=== PATIENT | female | born 1945 | race Caucasian/White ===

== ENCOUNTER → 2016-11-14 | Outpatient (CLI) | payer MEDICARE, OTHER ==
--- NOTE | 2016-11-14 16:30 | RADIOLOGY REPORT (SQ) ---
EXAM DESCRIPTION: CT CHEST WITHOUT COMPLETED DATE/TIME: 11/14/2016 3:00 pm REASON FOR STUDY: COUGH/COPD R05 COUGH J44.9 CHRONIC OBSTRUCTIVE PULMONARY DISEASE, UNSPECIFIED COMPARISON: None. TECHNIQUE: CT scan performed of the chest without intravenous contrast. Images reviewed with lung, soft tissue and bone windows. Reconstructed coronal and sagittal MPR images reviewed. All images st ored on PACS. All CT scanners at this facility use dose modulation, iterative reconstruction, and/or weight based d osing when appropriate to reduce radiation dose to as low as reasonably achievable (ALARA). [facility]: Dose Right [facility]: CareDose [facility]: Dose Right [facility]: Teradose 4D [facility]: VasoNova RADIATION DOSE: Up-to-date CT equipment and radiation dose reduction techniques were employed. CTDIv ol: 9.9 mGy. DLP: 346 mGy-cm. mGy. LIMITATIONS: No technical limitations. FINDINGS: LUNGS AND PLEURA: Fairly diffuse subpleural scarring, reticular opacities with regions of fibrosis. This looks slightly more pronounced in the upper lobes, with there is additional bullous e mphysema. No consolidating pneumonia. No nodules or masses. No pleural calcification or fluid. HILAR AND MEDIASTINAL STRUCTURES: Small nodes in the mediastinum. These measure up to almost 1 cm in short axis. Hiatal hernia, organo-axial volvulus. Stomach flipped into the lower mediastinum. No esophageal dilatation. HEART AND VASCULAR STRUCTURES: No aneurysm. No pericardial effusion. UPPER ABDOMEN: No significant findings. Limited exam. THYROID AND OTHER SOFT TISSUES: No masses. No adenopathy. BONES: Osteopenic. Small wedge compression deformities at thoracolumbar junction are likely chronic. At least 1 additional mid thoracic upper endplate depression. No suspicious bone lesions are ident ified. HARDWARE: None in the chest. OTHER: No other significant findings. IMPRESSION: 1. Emphysema and fibrosis as above. No acute infiltrate detected. 2. Sizable hiatal hernia, organo-axial volvulus. 3. Osteopenia. Several compression fractures are likely chronic. TECHNICAL DOCUMENTATION: JOB ID: [id number] Quality ID # [id number]: Final reports with documentation of one or more dose reduction techniques (e.g., Au tomated exposure control, adjustment of the mA and/or kV according to patient size, use of iterative reconstruction technique) 2010 [employer]- All Rights Reserved
== END ==
LOC: RAD 14:37
PROVIDERS: ATTEND Family Medicine
DX: J44.9 Chronic obstructive pulmonary disease, unspecified (principal); R05 Cough
CPT/HCPCS: 71250

== ENCOUNTER → 2017-03-21 | Outpatient (CLI) | payer MEDICARE, OTHER ==
--- NOTE | 2017-03-21 10:12 | ST Modified Barium Swallow ---
Recommendation - Recommendations Recommendations: Recommend consult with GI due to nature of symptoms. No pharyngeal swallowing deficits seen. Medical Diagnoses - Medical Diagnoses Medical Diagnosis Description & ICD-10 Code(s): dysphagia R13.10 Other Medical Diagnoses/Co-Morbidities: patient reported acute bronchitis, reflux, chronic back pain, anxiety, depression. - ICD-10 Tx Diagnosis Coding (1) Dysphagia ICD-10 Code(s): R13.10 - DYSPHAGIA, UNSPECIFIED ST Modified Barium Swallow - General Date: 03/21/17 Referring Physician: Dr. Francis Morgan Reason for Referral: globus sensation, discomfort during swallowing. - History History obtained from: Patient -: Medical - Patient reports having symptoms for "months" of pain or discomfort during swallowing. Indicates that pain is felt below the level of the UES. She states that she is also having reflux symptoms, that she is taking medication for this but does not feel it is helping. No recent pneumonia diagnosed, and no significant coughing during meals. Does report needing to have liquid during meals due to dry mouth. Patient did also have 4 teeth pulled recently, reports some mild mouth pain, but this is not impacting her swallowing at this time. Medications: Incomplete list reported by patient, states that she is taking a reflux medication, unable to name specific medication. Allergies: Patient reported allergy to anoxicillin and myoxin - Functional Status Prior Functional Status: INDEPENDENT: feeding - independent Current Functional Limitations: feeding - Subjective Patient/caregiver goal(s): safe swallow Cognitive-Linguistic Function: WNL Speech Intelligibility: WNL Current Nutritional Means: PO Current PO diet: Regular Current symptoms: c/o Globus sensation Pain: 1/5 - mouth pain from recent dental procedure - Objective Assessment: Upright, Left Lateral - Food Trials Used Food trials used: Thin liquids, Pureed, Regular The patient: Was Able to Self Feed - Oral-Motor Skills Dentition: Full Laryngeal Function: Volitional Cough - WNL, Volitional Swallow - WNL - Assessment Oral prep: Normal Labial closure: Adequate Leakage: None Mastication: Adequate Lingual Movement: Normal Oral stage: Normal for this Procedure - Pharyngeal Stage Initiation of Pharyngeal Stage Reflex: Normal Decreased laryngeal elevation: No Reduced Velopharyngeal Closure: no Reduced pressure generation: No reduced tongue-based retraction: No Pre-swallow pooling in valleculae: None Pre-Swallow pooling in pyriforms: None Reduced Thyro-Hyoid approximation: No Reduced epiglottic excursion: No Reduced pharyngeal peristalsis/contraction: No Post-swallow residulas vallecular: None Post-Swallow residuals in pyriforms: None Post-Swallow Residuals: no residuals - Fall Risk Assessment Medications/Conditions that increase fall risks include: Antidepressants, sedatives, anti-arrhythmic, diuretic, benzodiazipenes, neuroleptics. BP regulation problems, cardiac problems, balance or gait deficits, neurological problems. Is patient considered at risk for falls: yes Fall Risk Actions Taken: No action needed - Behavioral Observations During evaluation process patient: was pleasant, was cooperative, able to answer questions, provided medical history Mental Status: Alert & Oriented X3 - Treatment / Educational Needs: Treatment/Education Needs: Treatment consisted of patient education on the role of the Speech Pathologist. Patient's plan of care and golas were communicated as well as scheduling and attendance policies. Recommendations for initial home program were shared. Patient demonstrated understanding and verbalized agreement. - Impression/Summary Laryngeal Penetration: No Tracheal Aspiration: no Patient presents with: Normal swallow at eval Risk of Aspiration: Minimal Evaluation and Findings: Patient presents with normal swallow this day. Possible GI concerns due to patient complaints of heart burn and discomfort at a lower level when swallowing solids. - Recommendations Solid diet recommendations: Regular Liquid Diet Modification: Thin Pt/Family education and followup with MD: Yes Dysphagia therapy with FIBER MACHINE TENDER: no - Time Total Time: 25 - Plan of Care Patient to follow-up with referring physician: No Strategies to optimize patient understanding include:: ongoing assessment of educational needs, implementation of educational strategies, and re-education. - - -: Thank you for the opportunity to work with this patient and his/her family. Should you have any questions about this patient's plan or progress, I can be reached at [phone]. Charge G Code? - - -: Yes ST F.L. Impairment Category - Rationale Based On Rationale Based On: Func. Asses. Tool Results - Swallowing Current G8996: CH 0% Impaired Goal G8997: CH 0% Impaired Discharge G8998: CH 0% Impaired
--- NOTE | 2017-03-21 17:12 | RADIOLOGY REPORT (SQ) ---
EXAM DESCRIPTION: KAMILLA SWALLOW COMPLETED DATE/TIME: 03/21/2017 8:46 am REASON FOR STUDY: DYSPHAGIA (R13.10) R13.10 DYSPHAGIA, UNSPECIFIED COMPARISON: None. TECHNIQUE: Videofluoroscopic swallowing examination was performed in conjunction with speech patholo gy. Videofluoroscopic imaging was obtained and reviewed and these are the findings: RADIATION DOSE: One minute, seven seconds of fluoroscopy was used 1 images saved to PACS. LIMITATIONS: None FINDINGS: The patient was brought into the fluoro room and placed upright on a modified barium swall ow chair. The patient was then given multiple consistencies mixed with barium to swallow under live fluoroscopic video guidance. According to the Speech Pathologist there was no penetration or aspirat ion. IMPRESSION: NO EVIDENCE OF PENETRATION OR ASPIRATION.PLEASE SEE SPEECH PATHOLOGIST REPORT FOR OTHER FINDINGS AND RECOMMENDATIONS. COMMENT: Quality ID [id number]: Final reports for procedures using fluoroscopy that document radiation exp osure indices, or exposure time and number of fluorographic images (if radiation exposure indices are not available) TECHNICAL DOCUMENTATION: JOB ID: [id number] [employer]- All Rights Reserved
[2017-03-22 08:22] LABS: IGG SUBCLASS 4 3 mg/dL (2-96)
[2017-03-22 13:38] LABS: JO-1 ANTIBODY (ANACOMP) <0.2 AI (0.0-0.9)
[2017-03-25 16:39] LABS: CYTOPLASMIC (C-ANCA) <1:20 titer (Neg:<1:20)
== END ==
LOC: RAD 08:12
PROVIDERS: ATTEND Internal Medicine Pulmonary Disease
DX: J84.10 Pulmonary fibrosis, unspecified (principal); R13.10 Dysphagia, unspecified
CPT/HCPCS: 36415; 86021; 86430; 86225; 86235 ×8; 74230; 92611; G8996; G8997; G8998

== ENCOUNTER → 2017-05-15 | Outpatient (CLI) | payer MEDICARE, OTHER ==
[2017-05-15 14:51] LABS: POTASSIUM 4.5 mmol/L (3.6-5.0)
[2017-05-15 15:24] LABS: FERRITIN 19.3 ng/mL (11.1-264.0)
[2017-05-16 16:44] LABS: FOL RBC HEMATOCRIT 41.6 % (34.0-46.6); FOLATE HEMOLYSATE 297.8 ng/mL (Not Estab.)
[2017-05-16 19:17] LABS: FOLATE RBC 3 716 ng/mL (>498)
== END ==
LOC: OD 13:35
PROVIDERS: ATTEND Internal Medicine Pulmonary Disease
DX: G47.61 Periodic limb movement disorder (principal); D64.9 Anemia, unspecified
CPT/HCPCS: 36415; 82306; 82607; 82728; 82747; 83735; 84132

== ENCOUNTER 2017-08-12 16:28 | Emergency (ER) | payer MEDICARE, OTHER ==
[2017-08-12] MEDS ORDERED: HYDROMORPHONE HCL INJ/PF 2 MG/ML AMPULE IV ONE ×3 (19:05→22:26)
[2017-08-12] MEDS ORDERED: ONDANSETRON HCL INJ/PF 4 MG/2 ML SDV IV ONE ×2 (19:05→23:02)
--- NOTE | 2017-08-12 19:10 | ER Document Report ---
ED Neck/Back Problem - General Chief Complaint: Back Pain Stated Complaint: BACK PAIN Time Seen by Provider: 08/12/17 18:51 Mode of Arrival: Medic Information source: Patient, Relative TRAVEL OUTSIDE OF THE [place] IN LAST 30 DAYS: No - HPI Patient complains to provider of: Pain, Lower back Notes: The patient is here with complaints of low back pain. The patient has a history of chronic back pain and has been taking [place] as prescribed by her doctor up until about a week ago. She had a spinal injection performed approximately 5 days ago and has had increasingly worsening pain over this timeframe. Today the pain was so bad that she is not able to stand because of the pain. She has nausea, but denies any vomiting or diarrhea. She denies any bowel or bladder dysfunction. She is not on blood thinners. She denies any numbness, tingling, weakness to the legs. No chest pain or shortness of breath. No rash. No fever. She denies any other complaints at this time. The pain is worse with any sort of movement, nothing in particular makes it better although certain positions make it somewhat tolerable. - Related Data Allergies/Adverse Reactions: clarithromycin [From Biaxin] Allergy (Verified 08/12/17 16:30) Penicillins Allergy (Verified 08/12/17 16:30) Past Medical History - Social History Smoking Status: Unknown if Ever Smoked Family History: Reviewed & Not Pertinent - Past Medical History Cardiac Medical History: Reports: Hx Hypertension GI Medical History: Reports: Hx Gastroesophageal Reflux Disease, Hx Irritable Bowel Past Surgical History: Reports: Hx Orthopedic Surgery - L knee - Immunizations Hx Diphtheria, Pertussis, Tetanus Vaccination: Yes Review of Systems - Review of Systems -: Yes All other systems reviewed and negative Physical Exam - Vital signs Vitals: Temp Pulse Resp BP Pulse Ox 98.2 F 77 16 140/81 H 97 08/12/17 16:34 08/12/17 16:34 08/12/17 16:34 08/12/17 16:34 08/12/17 16:34 - Notes Notes: GENERAL: alert, cooperative, nontoxic, no distress. Patient definitely appears uncomfortable. HEAD: normocephalic, atraumatic EYES: conjunctiva pink without discharge, no external redness or swelling. EARS: no external swelling, no external redness NOSE: atraumatic, no external swelling MOUTH/THROAT: mucous membranes moist and pink, posterior pharynx without erythema, swelling, exudate. No trismus or drooling. NECK: soft, supple, full range of motion, no meningismus. CHEST: no distress, lungs clear and equal throughout. No wheezing, rales, rhonchi. CARDIAC: regular rate and rhythm, no murmur, normal capillary refill, normal pulses. No peripheral edema noted. ABDOMEN: soft, nontender, no pusatile mass. BACK: No CVA tenderness. Tenderness to the right SI joint. No redness over the skin. Limited range of motion secondary to pain. EXTREMITIES: full range of motion of all extremities. No redness, no swelling. NEURO: alert and oriented A&O x 3, no focal deficits, full range of motion of all extremities. 5 out of 5 flexion and extension of the lower extremities bilaterally. Achilles deep tendon reflexes are +2 bilaterally. Difficulty obtaining patellar deep tendon reflexes. Patient has had bilateral knee replacements. Normal sensation with no saddle anesthesia. Patient can dorsiflex the great toes bilaterally. PYSCH: appropriate mood, affect. Patient is cooperative. SKIN: pink, warm, dry, no rash. Course - Re-evaluation Re-evalutation: 08/12/17 23:56 The patient is nontoxic appearing with stable vitals. The patient has a history of chronic back pain. She received particular injections 5 days ago. She has no pain medication at home. Over the last 2 days she has had significantly worsening pain to the point where she was unable to ambulate due to extreme pain. No bowel or bladder dysfunction. She is on no blood thinners. She has not been running fevers. Her injection site looks great with no signs of infection. She has a nonfocal neuro exam with normal sensation and no saddle anesthesia. No sign of cauda equina, epidural abscess/ bleed, discitis, osteomyelitis. She has a normal white blood cell count. Sed rate and CRP are minimally elevated. CT of the lumbar spine with IV contrast shows no abscess or acute findings with degenerative changes and disc bulge. The patient was given pain medication in the emergency department which included Dilaudid and Toradol. We now have her pain under control. She was able to ambulate to the bathroom without significant difficulty on her own. At this point we discussed admission versus discharge home. Since the patient has no obvious signs of acute infections or deficits and is feeling better and able to ambulate, she feels comfortable being discharged home at this time. I will discharge the patient home with Jeffrey and [place]. She is instructed to follow-up with her pain doctor tomorrow for recheck. She is instructed to follow-up sooner or return to the emergency department if she increase has increasing pain, high fever, bowel or bladder dysfunction, weakness, or has any further concerns. The patient is noted to have elevated blood pressure during today's emergency department visit. The patient was informed of this finding. The patient was instructed that this may be related to pre-hypertension and requires further evaluation with a primary care provider. The patient has no hypertensive symptoms at this time. The patient's emergency department workup and current diagnosis were explained to the patient and or family. Follow-up instructions were provided. Medications if prescribed were discussed. Instructions for when to return to the emergency department including specific worrisome symptoms were discussed with the patient and/or family. - Vital Signs Vital signs: Temp Pulse Resp BP Pulse Ox 98.2 F 77 16 140/81 H 97 08/12/17 16:34 08/12/17 16:34 08/12/17 16:34 08/12/17 16:34 08/12/17 16:34 - Laboratory Result Diagrams: 08/12/17 19:27 08/12/17 19:27 Laboratory results interpreted by me: 08/12/17 08/12/17 08/12/17 19:27 19:27 19:55 RDW 14.2 H ESR 36 H C-Reactive Protein 20.2 H - Diagnostic Test Radiology reviewed: Image reviewed, Reports reviewed - CT of the lumbar spine with IV contrast shows no paraspinal abscess, anterior listhesis with disc bulge and old endplate deformity. No acute findings. Discharge - Discharge Clinical Impression: Acute exacerbation of chronic low back pain Condition: Stable Disposition: HOME, SELF-CARE Instructions: Low Back Pain ([facility]), Oral Narcotic Medication ([facility]) Additional Instructions: Take medications as prescribed. Usual walker while at home. Be sure to get up and move slowly. Follow-up with your back doctor at the next available appointment. Return to the emergency department for worsening pain, high fever , bowel or bladder dysfunction, numbness, tingling, weakness, or any further concerns. Your blood pressure was elevated during today's visit. Have this rechecked with your doctor. The medication you were prescribed today may cause drowsiness. Do not drive or operate heavy machinery while taking this medication. Prescriptions: Ondansetron HCl [Zofran 4 mg Tablet] 1 - 2 tab PO Q4H PRN #10 tablet PRN Reason: Oxycodone HCl/Acetaminophen [Percocet 5-325 mg Tablet] 1 - 2 tab PO Q4H PRN #15 tablet PRN Reason: Forms: Elevated Blood Pressure, Smoking Cessation Education Referrals: [facility] [Provider Group] - Follow up as needed
[2017-08-12 19:35] LABS: ABSOLUTE BASOPHILS # (AUTO) 0.1 10^3/uL (0.0-0.2); ABSOLUTE EOSINOPHILS # (AUTO) 0.1 10^3/uL (0.0-0.6); ABSOLUTE LYMPHOCYTES (AUTO) 1.8 10^3/uL (0.5-4.7); ABSOLUTE MONOCYTES (AUTO) 0.6 10^3/uL (0.1-1.4); ABSOLUTE NEUT (AUTO) 5.5 10^3/uL (1.7-8.2); BASOPHILS % (AUTO) 0.6 % (0-2); EOSINOPHILS % (AUTO) 0.9 % (0-6); HEMATOCRIT 42.1 % (36.0-47.0); HEMOGLOBIN 13.9 g/dL (12.0-15.5); LYMPHOCYTES % (AUTO) 22.1 % (13-45); MEAN CORPUSCULAR HEMOGLOBIN 29.8 pg (27.0-33.4); MEAN CORPUSCULAR VOLUME 90 fl (80-97); MONOCYTES % (AUTO) 7.8 % (3-13); PLATELET COUNT 229 10^3/uL (150-450); RED BLOOD COUNT 4.66 10^6/uL (3.72-5.28); RED CELL DISTRIBUTION WIDTH 14.2 % (11.5-14.0); SEGMENTED NEUTROPHILS % (AUTO) 68.6 % (42-78); TOTAL CELLS COUNTED % (AUTO) 100 %
[2017-08-12 20:31] LABS: ALANINE AMINOTRANSFERASE 37 U/L (9-52); ALBUMIN 4.6 g/dL (3.5-5.0); ALKALINE PHOSPHATASE 95 U/L (38-126); ANION GAP 12 (5-19); ASPARTATE AMINO TRANSFERASE 23 U/L (14-36); BILIRUBIN,DIRECT 0.4 mg/dL (0.0-0.4); BILIRUBIN,TOTAL 0.7 mg/dL (0.2-1.3); BLOOD UREA NITROGEN 10 mg/dL (7-20); C-REACTIVE PROTEIN 20.2 mg/L (<10.0); CARBON DIOXIDE 27 mmol/L (22-30); CHLORIDE 100 mmol/L (98-107); GLUCOSE 89 mg/dL (75-110); POTASSIUM 3.9 mmol/L (3.6-5.0); SODIUM 139.1 mmol/L (137-145); TOTAL PROTEIN 7.5 g/dL (6.3-8.2)
[2017-08-12] MEDS ORDERED: KETOROLAC TROMETHAMINE INJ/PF 30 MG/1 ML SDV IV ONE (21:33)
--- NOTE | 2017-08-12 22:44 | RADIOLOGY REPORT (SQ) ---
EXAM DESCRIPTION: CT LUMBAR SPINE WITH COMPLETED DATE/TIME: 08/12/2017 10:11 pm REASON FOR STUDY: LOW BACK PAIN, RECENT INJECTION COMPARISON: None. TECHNIQUE: Axial images acquired through the lumbar spine without intravenous contrast. Images revi ewed with lung, soft tissue and bone windows. Reconstructed coronal and sagittal MPR images reviewed . All images stored on PACS. All CT scanners at this facility use dose modulation, iterative reconstruction, and/or weight based d osing when appropriate to reduce radiation dose to as low as reasonably achievable (ALARA). [facility]: Dose Right [facility]: CareDose [facility]: Dose Right [facility]: Teradose 4D [facility]: Yododo RADIATION DOSE: mGy. LIMITATIONS: None. FINDINGS: SEGMENTATION: Normal. No transitional anatomy. ALIGNMENT: Grade 1 anterolisthesis of L4 on L5. VERTEBRAL BODIES: Superior endplate compression changes at L1 that do not appear acute. Mild superio r endplate compression changes at T12 as well. DISCS: There is marked narrowing of the disc space at L5-S1. There is mild bulging of the L4-5 disc that is partially unroofed by the anterolisthesis. PEDICLES, TRANSVERSE PROCESSES: No fractures. No dislocation. No acute findings. FACETS, POSTERIOR ELEMENTS: No fractures. No dislocation. No spinal stenosis. HARDWARE: None in the spine. VISUALIZED RIBS: No fractures. SOFT TISSUES: There is no evidence of paraspinous abscess. OTHER: No other significant finding. IMPRESSION: Anterolisthesis of L4 on L5 with mild disc bulge at that level. Old endplate compressio n changes seen at T12 and L1. TECHNICAL DOCUMENTATION: JOB ID: [id number] Quality ID # [id number]: Final reports with documentation of one or more dose reduction techniques (e.g., Au tomated exposure control, adjustment of the mA and/or kV according to patient size, use of iterative reconstruction technique) 2010 [employer]- All Rights Reserved Reading location - IP/workstation name: [email or web address]
[2017-08-13 00:41] VITALS: BP 141/95
== END 2017-08-13 00:15 | disposition home or self-care (01) ==
LOC: ER 16:28
DX: M54.5 Low back pain (principal); G89.29 Other chronic pain; R11.0 Nausea
CPT/HCPCS: 96376; 99284; 96374; 96375; 36415; 85025; 85652; 86140; 80053; 72132; J1885; J1170; J2405

== ENCOUNTER → 2017-08-27 | Outpatient (CLI) | payer MEDICARE, OTHER ==
--- NOTE | 2017-08-28 10:09 | RADIOLOGY REPORT (SQ) ---
EXAM DESCRIPTION: MRI LUMBAR SPINE WITHOUT COMPLETED DATE/TIME: 08/27/2017 6:39 pm REASON FOR STUDY: LUMBAR RADICULOPATHY M54.16 RADICULOPATHY, LUMBAR REGION COMPARISON: CT lumbar spine 08/12/2017 CT abdomen pelvis 11/05/2014 CT chest 11/14/2016 TECHNIQUE: Sagittal and Axial imaging includes T1, T2, STIR and gradient echo sequences. Coronal T2/ HASTE imaging. LIMITATIONS: None. FINDINGS: VISUALIZED UPPER ABDOMEN: Limited evaluation. No acute or suspicious findings suggested. SEGMENTATION: No transitional anatomy. The lowest well-developed disc space is labeled L5-S1. ALIGNMENT: Grade 1 anterolisthesis of L4 over L5 VERTEBRAE: A chronic appearing central upper endplate depression at T12 is present without overall T1 2 vertebral body loss of height. This is similar compared to CT chest 11/14/2016. There is a greater than 50% upper endplate compression of the L1 vertebral body with marrow edema noreen ng the upper endplate. There has been further compression of the vertebral bodies since the CT exam 08/12/2017. No significant retropulsion of bony fragments. This may be amenable to kyphoplasty for p ain management. BONE MARROW: Marrow edema parallels the upper endplate of L1 DISC SIGNAL: Diffuse decreased T2 weighted intervertebral disc signal. Disc space loss of height at L5-S1 POSTERIOR ELEMENTS: Generally intact. No pars defect evident. HARDWARE: None in the spine. CORD AND CONUS: Normal in size and signal intensity. Conus at the L2 level. SOFT TISSUES: No aortic aneurysm seen. No bulky retroperitoneal adenopathy or mass. No paraspinal mas s or fluid. T11-12: Minimal posterior disc bulging and mild facet hypertrophy. No central stenosis. Moderate b ilateral foraminal narrowing, left greater than right T12-L1: Minimal posterior disc bulging, moderate bilateral facet and ligament hypertrophy. No centr al stenosis. No right foraminal narrowing. Mild left foraminal narrowing. L1-L2: Mild diffuse posterior disc bulging. Mild bilateral facet hypertrophy. No central canal sten osis. Mild bilateral foraminal narrowing L2-L3: Mild diffuse posterior disc bulge, moderate bilateral facet and ligament hypertrophy. Borderl ine central canal narrowing. Mild bilateral inferior foraminal narrowing without exiting L2 nerve ro ot impingement L3-L4: Minimal posterior disc bulging, marked bilateral facet hypertrophy. Borderline central canal narrowing. No significant foraminal narrowing. Tiny bilateral facet synovial cyst protruding off th e inferior aspect of the L3-4 facets bilaterally L4-L5: Grade 1 anterolisthesis of L4 over L5 is present related to marked bilateral facet hypertrophy . No spondylolysis. There is broad diffuse posterior disc bulging with a small central protrusion c ausing high-grade central canal narrowing, with effacement of the CSF around the lumbar nerve roots b est shown on axial T2 image 32. Elsewhere at L4-5, there is mild bilateral inferior foraminal narrowing without exiting L4 nerve root impingement L5-S1: Mild diffuse posterior disc bulging and bony spurring left greater than right. No central deepa nosis. Mild right foraminal narrowing, moderate left foraminal stenosis without definite exiting L5 nerve root impingement SACRUM: Visualized upper sacrum intact. OTHER: No other significant findings. IMPRESSION: Subacute L1 upper endplate compression, with greater than 50% loss of height. This may be amenable to kyphoplasty for pain management. High-grade central canal narrowing at L4-5 TECHNICAL DOCUMENTATION: JOB ID: [id number] [employer]- All Rights Reserved Reading location - IP/workstation name: [email or web address]
== END ==
LOC: RAD 17:43
PROVIDERS: ATTEND Chiropractor
DX: M54.16 Radiculopathy, lumbar region (principal)
CPT/HCPCS: 72148

== ENCOUNTER → 2017-08-30 | Outpatient (CLI) | payer MEDICARE, OTHER ==
[2017-08-30 11:39] LABS: ABSOLUTE EOSINOPHILS # (AUTO) 0.1 10^3/uL (0.0-0.6); ABSOLUTE LYMPHOCYTES (AUTO) 1.9 10^3/uL (0.5-4.7); ABSOLUTE MONOCYTES (AUTO) 0.5 10^3/uL (0.1-1.4); ABSOLUTE NEUT (AUTO) 4.1 10^3/uL (1.7-8.2); BASOPHILS % (AUTO) 0.5 % (0-2); EOSINOPHILS % (AUTO) 1.6 % (0-6); HEMATOCRIT 42.6 % (36.0-47.0); LYMPHOCYTES % (AUTO) 28.9 % (13-45); MEAN CORPUSCULAR HEMOGLOBIN 30.1 pg (27.0-33.4); MEAN CORPUSCULAR HGB CONC 32.8 g/dL (32.0-36.0); MEAN CORPUSCULAR VOLUME 92 fl (80-97); MONOCYTES % (AUTO) 7.1 % (3-13); PLATELET COUNT 278 10^3/uL (150-450); RED BLOOD COUNT 4.65 10^6/uL (3.72-5.28); RED CELL DISTRIBUTION WIDTH 14.6 % (11.5-14.0); SEGMENTED NEUTROPHILS % (AUTO) 61.9 % (42-78); TOTAL CELLS COUNTED % (AUTO) 100 %; WHITE BLOOD COUNT 6.6 10^3/uL (4.0-10.5)
[2017-08-30 11:52] LABS: INTERNATIONAL RATION (INR) 0.89; PARTIAL THROMBOPLASTIN TIME 27.4 SEC (23.5-35.8); PROTHROMBIN TIME 12.7 SEC (11.4-15.4)
[2017-08-30 11:57] LABS: APPEARANCE,URINE CLEAR; BILIRUBIN,URINE NEGATIVE (NEGATIVE); COLOR,URINE YELLOW; GLUCOSE, URINE NEGATIVE (NEGATIVE); KETONES,URINE NEGATIVE (NEGATIVE); LEUKOCYTE ESTERASE,URINE TRACE (NEGATIVE); NITRITE,URINE NEGATIVE (NEGATIVE); PROTEIN,URINE 30 mg/dL (NEGATIVE); URINE SPECIFIC GRAVITY 1.023
== END ==
LOC: OD 10:41
PROVIDERS: ATTEND Student in an Organized Health Care Education/Training Program
DX: Z01.812 Encounter for preprocedural laboratory examination (principal); Z51.81 Encounter for therapeutic drug level monitoring
CPT/HCPCS: 36415; 81001; 85025; 85610; 85730

== ENCOUNTER 2017-09-02 11:04 | Day surgery (SDC) | payer MEDICARE, OTHER ==
[2017-09-02] MEDS ORDERED: CLINDAMYCIN 600 MG/D5W RTU 600 MG/50 ML RTUPB IV ONE (11:19)
[2017-09-02] MEDS ORDERED: LIDOCAINE 1% INJ-PF (10 MG/ML) 30 ML SDV ONE (11:21)
--- NOTE | 2017-09-02 11:37 | RADIOLOGY REPORT (SQ) ---
EXAM DESCRIPTION: CHEST SINGLE VIEW COMPLETED DATE/TIME: 09/02/2017 11:28 am REASON FOR STUDY: surgery COMPARISON: 07/05/2014 EXAM PARAMETERS: NUMBER OF VIEWS: One view. TECHNIQUE: Single frontal radiographic view of the chest acquired. RADIATION DOSE: NA LIMITATIONS: None. FINDINGS: LUNGS AND PLEURA: Low lung volumes limits the examination. Elevation of the right hemidi aphragm, stable finding. Mild prominence of the interstitial markings in the lungs, unchanged findin g. No opacities, masses or pneumothorax. No pleural effusion. MEDIASTINUM AND HILAR STRUCTURES: Prominence in the region of the right hilum may be related to rima ent positioning. HEART AND VASCULAR STRUCTURES: Heart normal in size. Normal vasculature. BONES: No acute findings. HARDWARE: None in the chest. OTHER: Moderate to large hiatal hernia, stable finding. IMPRESSION: 1 Prominence of the right hilum is suggested; this finding may be related patient positi oning and low lung volumes. A repeat examination is suggested for re- evaluation. 2 Stable prominent interstitial markings in the lungs. No acute pulmonary consolidation. 3 Moderate to large hiatal hernia, unchanged finding. TECHNICAL DOCUMENTATION: JOB ID: [id number] [employer]- All Rights Reserved Reading location - IP/workstation name: [email or web address]
[2017-09-02 11:40] LABS: APPEARANCE,URINE CLEAR; COLOR,URINE YELLOW
[2017-09-02 11:41] LABS: BILIRUBIN,URINE SMALL (NEGATIVE); GLUCOSE, URINE NEGATIVE (NEGATIVE); KETONES,URINE NEGATIVE (NEGATIVE); LEUKOCYTE ESTERASE,URINE TRACE (NEGATIVE); NITRITE,URINE NEGATIVE (NEGATIVE); PROTEIN,URINE 30 mg/dL (NEGATIVE); URINE SPECIFIC GRAVITY 1.023
[2017-09-02] MEDS ORDERED: DEXMEDETOMIDINE INJ 80 MCG/20 ML VIAL IV ONE (12:03)
[2017-09-02] MEDS ORDERED: LIDOCAINE 2% INJ-PF (20 MG/ML) 10 ML AMPUL ONE (12:03)
[2017-09-02] MEDS ORDERED: MIDAZOLAM 2 MG/2 ML INJ ONE (12:03)
[2017-09-02] MEDS ORDERED: KETAMINE HCL INJ 500 MG/10 ML VIAL ONE (12:03)
[2017-09-02] MEDS ORDERED: PROPOFOL INJ 200 MG/20 ML VIAL IV ONE (12:03)
[2017-09-02] MEDS ORDERED: FENTANYL CITRATE INJ/PF 100 MCG/2 ML AMPUL ONE (12:03)
[2017-09-02] MEDS ORDERED: ALBUTEROL SULFATE 0.083% NEB 2.5 MG/3 ML AMPUL NEB ONE (12:10)
[2017-09-02] MEDS ORDERED: FAMOTIDINE INJ/PF 20 MG/2 ML SDV IV ONE (12:42)
[2017-09-02] MEDS ORDERED: FENTANYL CITRATE INJ/PF 100 MCG/2 ML AMPUL IV PRN ×3 (13:33)
[2017-09-02] MEDS ORDERED: MEPERIDINE HCL/PF INJ 25 MG/1 ML DISP.SYRIN IV PRN (13:33)
[2017-09-02] MEDS ORDERED: ONDANSETRON HCL INJ/PF 4 MG/2 ML SDV IV PRN (13:33)
[2017-09-02] MEDS ORDERED: DIPHENHYDRAMINE HCL 50 MG/ML VIAL IV PRN (13:33)
[2017-09-02] MEDS ORDERED: PROMETHAZINE HCL INJ 25 MG/1 ML VIAL IV PRN (13:33)
--- NOTE | 2017-09-02 14:24 | OPERATIVE REPORT E ---
Operative Report NAME: JACKIE GUADALUPE : 1945 AGE: 72Y DATE OF SURGERY: 09/02/2017 ROOM: PREOPERATIVE DIAGNOSIS: L1 VERTEBRAL COMPRESSION FRACTURE. POSTOPERATIVE DIAGNOSIS: L1 VERTEBRAL COMPRESSION FRACTURE. OPERATION: Balloon L1 kyphoplasty. SURGEON: ISA CARVALHO M.D. TREE LOADER MEAT: None. ANESTHESIA: MAC. COMPLICATIONS: None. PROCEDURE IN DETAIL: After obtaining informed consent and advising the patient of the risks and benefits including serious neurological injury, bleeding, infection, paralysis, allergic reaction, , fairly to adequately to treat pain, she was taken to the operating room suite. She was placed comfortably in the prone position as determined by Anesthesia. She was prepped and draped. A C-arm was brought in for lateral and AP visualization and draped appropriately. Beginning at the L4 level using a right peripedicular approach, a suitable skin entry site was identified and anesthetized with 1% Lidocaine with bicarb. A small incision was made. The Express trocar was then advanced under serial fluoroscopy views in AP and lateral positions entering in the peripedicular approach and medializing after passing into the vertebral body to be positioned medial to the medial pedicular wall. The drill was then placed and removed followed by the balloon. This procedure was then repeated using the left peripedicular approach at the same vertebral level. Once the balloon was adequately inflated, the cement mixture was then mixed and using the filler tubes beginning at the right L1 level filling was performed. A total of 1.4 mL was placed on the right at the L1 level and a total of 2 mL was given on the left for a total of 3.4 mL. After the filler tubes were removed, Stylettes were placed into the trocars allowing the cement to harden prior to removing the trocars. The region was then cleansed. Sterile dressings were placed and the patient was taken to the PACU for further postoperative care and monitoring. DICTATING PHYSICIAN: ISA CARVALHO M.D. [id number] PHY#: [id number] ID: [id number] JOB#: [id number] ACCT: [id number] cc:ISA CARVALHO M.D. >
[2017-09-02] MEDS ORDERED: HYDROMORPHONE HCL 2 MG TABLET ONE (14:52)
[2017-09-02] MEDS ORDERED: HYDROMORPHONE HCL 2 MG TABLET PO PRN (15:27)
[2017-09-02 16:04] VITALS: BP 112/74
--- NOTE | 2017-09-02 17:17 | RADIOLOGY REPORT (SQ) ---
EXAM DESCRIPTION: L SPINE 2 VIEWS; NO CHG FLUORO COMPLETED DATE/TIME: 09/02/2017 2:39 pm REASON FOR STUDY: KYPHOPLASTY L1 ASST W/ FLUORO IN OR COMPARISON: MRI lumbar spine 08/27/2017 CT lumbar spine 08/12/2017 FLUOROSCOPY TIME: 2.4 minutes total fluoro time 0 28 retarded images saved to PACS. TECHNIQUE: Intra-operative images acquired during surgical procedure to evaluate progress. NUMBER OF IMAGES: 60 digital images saved to pacs LIMITATIONS: None. FINDINGS: Imaging during kyphoplasty performed by Dr. Coy. Please see his operative report for f urther details IMPRESSION: Intra procedural imaging and fluoro COMMENT: Quality ID 145: Final reports for procedures using fluoroscopy that document radiation exp osure indices, or exposure time and number of fluorographic images (if radiation exposure indices are not available) Please consult full operative report of the attending physician for description of the procedure. TECHNICAL DOCUMENTATION: JOB ID: [id number] [employer]- All Rights Reserved Reading location - IP/workstation name: [email or web address]
--- NOTE | 2017-09-02 17:17 | RADIOLOGY REPORT (SQ) ---
EXAM DESCRIPTION: L SPINE 2 VIEWS; NO CHG FLUORO COMPLETED DATE/TIME: 09/02/2017 2:39 pm REASON FOR STUDY: KYPHOPLASTY L1 ASST W/ FLUORO IN OR COMPARISON: MRI lumbar spine 08/27/2017 CT lumbar spine 08/12/2017 FLUOROSCOPY TIME: 2.4 minutes total fluoro time 0 28 retarded images saved to PACS. TECHNIQUE: Intra-operative images acquired during surgical procedure to evaluate progress. NUMBER OF IMAGES: 60 digital images saved to pacs LIMITATIONS: None. FINDINGS: Imaging during kyphoplasty performed by Dr. Coy. Please see his operative report for f urther details IMPRESSION: Intra procedural imaging and fluoro COMMENT: Quality ID 145: Final reports for procedures using fluoroscopy that document radiation exp osure indices, or exposure time and number of fluorographic images (if radiation exposure indices are not available) Please consult full operative report of the attending physician for description of the procedure. TECHNICAL DOCUMENTATION: JOB ID: [id number] [employer]- All Rights Reserved Reading location - IP/workstation name: [email or web address]
--- NOTE | 2017-09-02 19:23 | EKG REPORT ---
SEVERITY:- ABNORMAL ECG - SINUS RHYTHM PROBABLE LEFT ATRIAL ABNORMALITY LEFT VENTRICULAR HYPERTROPHY BORDERLINE T ABNORMALITIES, INFERIOR LEADS : Confirmed by: Cecilia Forrest 02-Sep-2017 19:21:47
[2017-09-03] MEDS ORDERED: CLINDAMYCIN 600 MG/D5W RTU 600 MG/50 ML RTUPB IV PRN (05:00)
== END 2017-09-02 16:10 | disposition home or self-care (01) ==
LOC: OROUT 11:04
PROVIDERS: ATTEND Student in an Organized Health Care Education/Training Program
PROC: 0QU03JZ Supplement Lumbar Vertebra with Synthetic Substitute, Percutaneous Approach (ICD-10-PCS; 2017-09-02)
PROC: 0QS03ZZ Reposition Lumbar Vertebra, Percutaneous Approach (ICD-10-PCS; principal; 2017-09-02 13:00)
DX: S32.010A Wedge compression fracture of first lumbar vertebra, initial encounter for closed fracture (principal); X58.XXXA Exposure to other specified factors, initial encounter; G89.4 Chronic pain syndrome; M54.5 Low back pain; M54.16 Radiculopathy, lumbar region; I10 Essential (primary) hypertension; F17.210 Nicotine dependence, cigarettes, uncomplicated; J44.9 Chronic obstructive pulmonary disease, unspecified; J43.9 Emphysema, unspecified; J84.10 Pulmonary fibrosis, unspecified; E78.00 Pure hypercholesterolemia, unspecified; M19.90 Unspecified osteoarthritis, unspecified site; M81.0 Age-related osteoporosis without current pathological fracture; E07.9 Disorder of thyroid, unspecified; Z96.653 Presence of artificial knee joint, bilateral; Z01.812 Encounter for preprocedural laboratory examination; Z51.81 Encounter for therapeutic drug level monitoring
CPT/HCPCS: 81001; 71045; 72100; 93005; 93010; 94640; 22514; Q9966; J2250; J3010; A9270 ×2; J3490 ×3; J2704; S0028; 1936

== ENCOUNTER 2017-10-15 07:33 | Day surgery (SDC) | payer MEDICARE, OTHER ==
[2017-10-08 12:04] LABS: ABSOLUTE EOSINOPHILS # (AUTO) 0.2 10^3/uL (0.0-0.6); ABSOLUTE LYMPHOCYTES (AUTO) 1.8 10^3/uL (0.5-4.7); ABSOLUTE MONOCYTES (AUTO) 0.5 10^3/uL (0.1-1.4); ABSOLUTE NEUT (AUTO) 4.4 10^3/uL (1.7-8.2); BASOPHILS % (AUTO) 0.7 % (0-2); EOSINOPHILS % (AUTO) 2.5 % (0-6); HEMOGLOBIN 12.9 g/dL (12.0-15.5); LYMPHOCYTES % (AUTO) 25.7 % (13-45); MEAN CORPUSCULAR HEMOGLOBIN 30.1 pg (27.0-33.4); MEAN CORPUSCULAR VOLUME 91 fl (80-97); MONOCYTES % (AUTO) 7.7 % (3-13); PLATELET COUNT 231 10^3/uL (150-450); RED BLOOD COUNT 4.27 10^6/uL (3.72-5.28); SEGMENTED NEUTROPHILS % (AUTO) 63.4 % (42-78); TOTAL CELLS COUNTED % (AUTO) 100 %; WHITE BLOOD COUNT 6.9 10^3/uL (4.0-10.5)
[2017-10-08 12:08] LABS: INTERNATIONAL RATION (INR) 0.94; PARTIAL THROMBOPLASTIN TIME 25.9 SEC (23.5-35.8); PROTHROMBIN TIME 13.1 SEC (11.4-15.4)
[2017-10-08 12:12] LABS: APPEARANCE,URINE CLOUDY; BILIRUBIN,URINE NEGATIVE (NEGATIVE); CALCIUM OXALATE CRYSTALS,URINE TOO NUMEROUS TO CNT /HPF; COLOR,URINE YELLOW; GLUCOSE, URINE NEGATIVE (NEGATIVE); KETONES,URINE NEGATIVE (NEGATIVE); LEUKOCYTE ESTERASE,URINE MODERATE (NEGATIVE); NITRITE,URINE NEGATIVE (NEGATIVE); PROTEIN,URINE NEGATIVE (NEGATIVE)
[~2017-10-15 07:33] MED LIST: CLINDAMYCIN 600 MG/D5W RTU 600 MG/50 ML RTUPB IV PRN; LACTATED RINGERS 1000 ML IV PRN; LIDOCAINE 0.5% INJ-PF (5 MG/ML) 50 ML SDV SUBCUT PRN; TRIAMCINOLONE ACETONIDE INJ 40 MG/1 ML VIAL ONE
[2017-10-15] MEDS ORDERED: LIDOCAINE 2% INJ-PF (20 MG/ML) 10 ML AMPUL ONE (10:12)
[2017-10-15] MEDS ORDERED: KETAMINE HCL INJ 500 MG/10 ML VIAL ONE (10:13)
[2017-10-15] MEDS ORDERED: MIDAZOLAM 2 MG/2 ML INJ ONE (10:13)
[2017-10-15] MEDS ORDERED: FENTANYL CITRATE INJ/PF 100 MCG/2 ML AMPUL ONE (10:13)
[2017-10-15] MEDS ORDERED: ONDANSETRON HCL INJ/PF 4 MG/2 ML SDV ONE (10:13)
[2017-10-15] MEDS ORDERED: DEXAMETHASONE SOD PHOSPHATE INJ 4 MG/1 ML VIAL ONE (10:13)
[2017-10-15] MEDS ORDERED: PROPOFOL INJ 200 MG/20 ML VIAL IV ONE (10:14)
[2017-10-15] MEDS: BUPIVACAINE HCL 0.25% /EPINEPHRINE INJ/PF 30 ML SDV ONE ×2 (10:20→10:39)
[2017-10-15] MEDS: LIDOCAINE 1% INJ-PF (10 MG/ML) 30 ML SDV ONE ×2 (10:21→10:39)
[2017-10-15] MEDS ORDERED: MEPERIDINE HCL/PF INJ 25 MG/1 ML DISP.SYRIN IV PRN (11:01)
[2017-10-15] MEDS ORDERED: FENTANYL CITRATE INJ/PF 100 MCG/2 ML AMPUL IV PRN ×3 (11:01)
[2017-10-15] MEDS ORDERED: DIPHENHYDRAMINE HCL 50 MG/ML VIAL IV PRN (11:01)
[2017-10-15] MEDS ORDERED: PROMETHAZINE HCL INJ 25 MG/1 ML VIAL IV PRN ×2 (11:01)
[2017-10-15] MEDS ORDERED: MORPHINE SULFATE 10 MG/ML INJ IV PRN (11:01)
[2017-10-15] MEDS ORDERED: OXYCODONE HCL IR 5 MG TABLET PO PRN (11:45)
--- NOTE | 2017-10-15 11:49 | OPERATIVE REPORT E ---
Operative Report NAME: JACKIE GUADALUPE : 1945 AGE: 72Y DATE OF SURGERY: 10/15/2017 ROOM: PREOPERATIVE DIAGNOSIS: Lumbar spinal stenosis and neurogenic claudication. POSTOPERATIVE DIAGNOSIS: Lumbar spinal stenosis and neurogenic claudication. PROCEDURE: Minimally invasive lumbar decompression at L4-L5 with epidural steroid injection at L4-L5 with 80 mg of Kenalog. SURGEON: ISA CARVALHO M.D. SAFETY INSTRUCTION POLICE OFFICER: None. ANESTHESIA: MAC. COMPLICATIONS: None. PROCEDURE DETAILS: After obtaining informed consent, advising the patient of the risks and benefits including serious neurological injury, bleeding, infection, paralysis, aggravation of pain, infection, , allergic reaction, she was taken to the operating room and placed comfortably in the prone position. Monitors were applied per Anesthesia. She was assessed visually and verbally for comfort. She was then prepped with chlorhexidine followed by a sterile drape. Fluoroscopy was used to evaluate the spine and L4-L4 target space was identified. Using an epidural needle, after anesthetizing with 1% lidocaine, to enter at the midline at L4-L5. An epidurogram was then performed with appropriate contrast spread at the L4-L5 level. Landmarks were identified and suitable track was determined for placement of the MILD instrumentation. Beginning on the left side, a small incision was made after local anesthesia of 1% lidocaine was applied. This was repeated on the right side at the selected entrance level. The MILD instrumentation trocar was then advanced through the small incision down to the lamina of the L4-L5 level on the left. Multiple x-ray were taken, particularly the oblique and AP to ensure satisfactory location. A small amount of additional local anesthetic, 1% lidocaine, was instilled through the trocar. The bone rongeur was then utilized for removal of the lamina and ligament at the level on the left in the superior inferior regions. A tissue sculptor was then utilized for removing additional tissue. Improvement of the contrast spread was noted. The procedure was then repeated exactly the same on the right side as described. Again, additional improvement in the contrast spread was noted. This was felt to be a satisfactory opening of the epidural space at the L4-L5 level, resolving some of the spinal stenosis. Through the epidural needle, 80 mg of Kenalog was then injected. All instrumentation was then removed. The region was cleaned, Steri-Strips were placed followed by sterile dressings. The patient was then taken to the PACU for further postoperative care and monitoring. DICTATING PHYSICIAN: ISA CARVALHO M.D. [id number] PHY#: [id number] ID: [id number] JOB#: [id number] ACCT: [id number] cc:ISA CARVALHO M.D. >
[2017-10-15 13:42] VITALS: BP 149/84
--- NOTE | 2017-10-15 15:58 | RADIOLOGY REPORT (SQ) ---
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 FLUOROSCOPY TIME: 12 minutes 43 images saved to PACS. TECHNIQUE: Intra-operative images acquired during surgical procedure to evaluate progress. NUMBER OF IMAGES: 43 LIMITATIONS: None. FINDINGS: Epidural and intradural injection of contrast. IMPRESSION: IMAGE(S) OBTAINED DURING PROCEDURE. COMMENT: Quality ID 145: Final reports for procedures using fluoroscopy that document radiation exp osure indices, or exposure time and number of fluorographic images (if radiation exposure indices are not available) Please consult full operative report of the attending physician for description of the procedure. TECHNICAL DOCUMENTATION: JOB ID: [id number] [employer]- All Rights Reserved Reading location - IP/workstation name: [email or web address]
--- NOTE | 2017-10-15 15:58 | RADIOLOGY REPORT (SQ) ---
EXAM DESCRIPTION: NO CHG FLUORO; L SPINE 2 VIEWS COMPLETED DATE/TIME: 10/15/2017 2:43 pm REASON FOR STUDY: MINIMALLY INVASIVE LUMBAR DISKECTOMY ASST WITH FLUOROSCOPY IN OR M48.062 SPINAL S TENOSIS, LUMBAR REGION WITH NEUROGENIC NELSON Z79.01 [employer] HEAD (CURRENT) USE OF ANTICOAGULANTS COMPARISON: None. FLUOROSCOPY TIME: 12 minutes 43 images saved to PACS. TECHNIQUE: Intra-operative images acquired during surgical procedure to evaluate progress. NUMBER OF IMAGES: 43 LIMITATIONS: None. FINDINGS: Epidural and intradural injection of contrast. IMPRESSION: IMAGE(S) OBTAINED DURING PROCEDURE. COMMENT: Quality ID 145: Final reports for procedures using fluoroscopy that document radiation exp osure indices, or exposure time and number of fluorographic images (if radiation exposure indices are not available) Please consult full operative report of the attending physician for description of the procedure. TECHNICAL DOCUMENTATION: JOB ID: [id number] [employer]- All Rights Reserved Reading location - IP/workstation name: [email or web address]
== END 2017-10-15 13:32 | disposition home or self-care (01) ==
LOC: OROUT 07:33
PROVIDERS: ATTEND Student in an Organized Health Care Education/Training Program
DX: M48.062 Spinal stenosis, lumbar region with neurogenic claudication (principal); Z00.6 Encounter for examination for normal comparison and control in clinical research program; E78.00 Pure hypercholesterolemia, unspecified; I10 Essential (primary) hypertension; M19.90 Unspecified osteoarthritis, unspecified site; E07.9 Disorder of thyroid, unspecified; F17.210 Nicotine dependence, cigarettes, uncomplicated; G89.4 Chronic pain syndrome; M54.5 Low back pain; M51.37 Other intervertebral disc degeneration, lumbosacral region; M46.1 Sacroiliitis, not elsewhere classified; M47.816 Spondylosis without myelopathy or radiculopathy, lumbar region; J43.9 Emphysema, unspecified; M43.17 Spondylolisthesis, lumbosacral region; M54.16 Radiculopathy, lumbar region; S32.010D Wedge compression fracture of first lumbar vertebra, subsequent encounter for fracture with routine healing; Z79.01 Long term (current) use of anticoagulants; Z79.899 Other long term (current) drug therapy; Z79.51 Long term (current) use of inhaled steroids; Z79.891 Long term (current) use of opiate analgesic; Z01.812 Encounter for preprocedural laboratory examination
CPT/HCPCS: 36415; 85025; 85610; 85730; 81001; 72100; 0275T; Q9966; J2250; J3490 ×5; J1100; J3010; J2405; J2704; 630

== ENCOUNTER 2017-11-11 16:34 | Emergency (ER) | payer MEDICARE, OTHER ==
--- NOTE | 2017-11-11 17:25 | ER Document Report ---
ED Medical Screen (RME) - General Chief Complaint: Breathing Difficulty Stated Complaint: SHORTNESS OF BREATH Time Seen by Provider: 11/11/17 17:13 Mode of Arrival: Wheelchair Information source: Patient, Dr. Office Notes: 72-year-old female on 2 L nasal cannula at all times presents with concerns of shortness of breath is worsened over the past few days. Patient notes she was seen by her family doctor this morning, had lab work and imaging performed, notes an elevated d-dimer and was sent in for CT I have greeted and performed a rapid initial assessment of this patient. A comprehensive ED assessment and evaluation of the patient, analysis of test results and completion of the medical decision making process will be conducted by additional ED providers. PHYSICAL EXAMINATION: GENERAL: Well-appearing, well-nourished and in no acute distress. Patient on nasal cannula HEAD: Atraumatic, normocephalic. EYES: Pupils equal round extraocular movements intact, conjunctiva are normal. ENT: Nares patent NECK: Normal range of motion LUNGS: No respiratory distress Musculoskeletal: Normal range of motion NEUROLOGICAL: Normal speech, normal gait. PSYCH: Normal mood, normal affect. SKIN: Warm, Dry, normal turgor, no rashes or lesions noted. TRAVEL OUTSIDE OF THE [place] IN LAST 30 DAYS: No - Related Data Allergies/Adverse Reactions: clarithromycin [From Biaxin] Allergy (Verified 11/11/17 16:40) Penicillins Allergy (Verified 11/11/17 16:40) Past Medical History - Past Medical History Cardiac Medical History: Reports: Hx Hypertension Denies: Hx Coronary Artery Disease, Hx Heart Attack Pulmonary Medical History: Reports: Hx Bronchitis, Hx COPD - Pulmonary Fibrosis , wear 2LNC continuously, Hx Pneumonia Denies: Hx Asthma Neurological Medical History: Denies: Hx Cerebrovascular Accident, Hx Seizures Renal/ Medical History: Denies: Hx Peritoneal Dialysis GI Medical History: Reports: Hx Gastroesophageal Reflux Disease, Hx Irritable Bowel Musculoskeltal Medical History: Reports Hx Arthritis - Osteoarthritis Psychiatric Medical History: Reports: Hx Depression Past Surgical History: Reports: Hx Orthopedic Surgery - L knee, Hx Tubal Ligation - Immunizations Hx Diphtheria, Pertussis, Tetanus Vaccination: No History of Influenza Vaccine for 03/2017 - 08/2017 Season: Yes Influenza Administration Date for 03/2017 - 08/2017 Season: 03/03/17 Physical Exam - Vital signs Vitals: Temp Pulse Resp BP Pulse Ox 98.0 F 69 20 113/62 93 11/11/17 16:44 11/11/17 16:44 11/11/17 16:44 11/11/17 16:44 11/11/17 16:44 Course - Vital Signs Vital signs: Temp Pulse Resp BP Pulse Ox 98.0 F 69 20 113/62 93 11/11/17 16:44 11/11/17 16:44 11/11/17 16:44 11/11/17 16:44 11/11/17 16:44 Doctor's Discharge - Discharge Referrals: KRYSTEN OVALLE PA [Primary Care Provider] - Follow up as needed
[2017-11-11 19:17] LABS: ABSOLUTE EOSINOPHILS # (AUTO) 0.1 10^3/uL (0.0-0.6); ABSOLUTE LYMPHOCYTES (AUTO) 1.6 10^3/uL (0.5-4.7); ABSOLUTE MONOCYTES (AUTO) 0.5 10^3/uL (0.1-1.4); ABSOLUTE NEUT (AUTO) 3.5 10^3/uL (1.7-8.2); BASOPHILS % (AUTO) 0.4 % (0-2); EOSINOPHILS % (AUTO) 1.9 % (0-6); HEMATOCRIT 40.8 % (36.0-47.0); HEMOGLOBIN 13.5 g/dL (12.0-15.5); LYMPHOCYTES % (AUTO) 28.7 % (13-45); MEAN CORPUSCULAR HEMOGLOBIN 30.4 pg (27.0-33.4); MEAN CORPUSCULAR HGB CONC 33.1 g/dL (32.0-36.0); MEAN CORPUSCULAR VOLUME 92 fl (80-97); MONOCYTES % (AUTO) 8.4 % (3-13); PLATELET COUNT 230 10^3/uL (150-450); RED BLOOD COUNT 4.44 10^6/uL (3.72-5.28); SEGMENTED NEUTROPHILS % (AUTO) 60.6 % (42-78); TOTAL CELLS COUNTED % (AUTO) 100 %; WHITE BLOOD COUNT 5.7 10^3/uL (4.0-10.5)
[2017-11-11 19:31] LABS: ALANINE AMINOTRANSFERASE 31 U/L (9-52); ALBUMIN 4.6 g/dL (3.5-5.0); ALKALINE PHOSPHATASE 111 U/L (38-126); ANION GAP 13 (5-19); ASPARTATE AMINO TRANSFERASE 25 U/L (14-36); BILIRUBIN,DIRECT 0.4 mg/dL (0.0-0.4); BILIRUBIN,TOTAL 0.8 mg/dL (0.2-1.3); BLOOD UREA NITROGEN 14 mg/dL (7-20); CALCIUM 10.1 mg/dL (8.4-10.2); CARBON DIOXIDE 28 mmol/L (22-30); CHLORIDE 98 mmol/L (98-107); CREATINE KINASE 103 U/L (30-135); GLUCOSE 91 mg/dL (75-110); POTASSIUM 4.7 mmol/L (3.6-5.0); SODIUM 138.7 mmol/L (137-145); TOTAL PROTEIN 7.6 g/dL (6.3-8.2)
--- NOTE | 2017-11-11 19:31 | ER Document Report ---
ED Respiratory Problem - General Chief Complaint: Breathing Difficulty Stated Complaint: SHORTNESS OF BREATH Time Seen by Provider: 11/11/17 17:13 Mode of Arrival: Wheelchair Notes: Patient is a 72-year-old female that comes emergency department for chief complaint of shortness of breath and pain along her mid to lower ribs both front and back for the past several days. Rib pain is notable with deep breaths. She states she was worst yesterday and she is actually improved today , she was seen by her provider today and had a workup performed, workup showed elevated d-dimer and she was referred to the emergency department for CTA. Patient denies fever, she states her cough is improved, she denies nausea vomiting, abdominal pain, she denies any specific pain in her chest, only reports hitting her lower rib area, she denies injury. Past medical history includes CHF, COPD, pulmonary fibrosis, hypertension, and 2 L nasal cannula dependency 24/12. Daughter at bedside. TRAVEL OUTSIDE OF THE [place] IN LAST 30 DAYS: No - Related Data Allergies/Adverse Reactions: amoxicillin [From Amoxil] Allergy (Verified 11/11/17 20:01) clarithromycin [From Biaxin] Allergy (Verified 11/11/17 16:40) Penicillins Allergy (Verified 11/11/17 16:40) Past Medical History - General Information source: Patient, DrJaycee Office - Social History Smoking Status: Former Smoker Frequency of alcohol use: None Drug Abuse: None Lives with: Family Family History: Reviewed & Not Pertinent Patient has suicidal ideation: No Patient has homicidal ideation: No - Past Medical History Cardiac Medical History: Reports: Hx Hypertension Denies: Hx Coronary Artery Disease, Hx Heart Attack Pulmonary Medical History: Reports: Hx Bronchitis, Hx COPD - Pulmonary Fibrosis , wear 2LNC continuously, Hx Pneumonia Denies: Hx Asthma Neurological Medical History: Denies: Hx Cerebrovascular Accident, Hx Seizures Renal/ Medical History: Denies: Hx Peritoneal Dialysis GI Medical History: Reports: Hx Gastroesophageal Reflux Disease, Hx Irritable Bowel Musculoskeltal Medical History: Reports Hx Arthritis - Osteoarthritis Psychiatric Medical History: Reports: Hx Depression Past Surgical History: Reports: Hx Orthopedic Surgery - L knee, Hx Tubal Ligation - Immunizations Hx Diphtheria, Pertussis, Tetanus Vaccination: No Review of Systems - Review of Systems Constitutional: No symptoms reported EENT: No symptoms reported Cardiovascular: See HPI Respiratory: See HPI Gastrointestinal: No symptoms reported Genitourinary: No symptoms reported Female Genitourinary: No symptoms reported Musculoskeletal: No symptoms reported Skin: No symptoms reported Hematologic/Lymphatic: No symptoms reported Neurological/Psychological: No symptoms reported Physical Exam - Vital signs Vitals: Temp Pulse Resp BP Pulse Ox 98.0 F 69 20 113/62 93 11/11/17 16:44 11/11/17 16:44 11/11/17 16:44 11/11/17 16:44 11/11/17 16:44 - Notes Notes: GENERAL: Alert, interacts well. No acute distress. Patient wearing nasal cannula HEAD: Normocephalic, atraumatic. EYES: Pupils equal, round, and reactive to light. Extraocular movements intact. ENT: Oral mucosa dry, tongue midline. NECK: Full range of motion. Supple. Trachea midline. LUNGS: Clear to auscultation bilaterally, no wheezes, rales, or rhonchi. No respiratory distress. No tachypnea. HEART: Regular rate and rhythm. No murmur ABDOMEN: Soft, non-tender. Non-distended. Bowel sounds present in all 4 quadrants. EXTREMITIES: Moves all 4 extremities spontaneously. No edema, normal radial and dorsalis pedis pulses bilaterally. No cyanosis. BACK: no cervical, thoracic, lumbar midline tenderness. No saddle anesthesia, normal distal neurovascular exam. NEUROLOGICAL: Alert and oriented x3. Normal speech. [cranial nerves II through XII grossly intact]. PSYCH: Normal affect, normal mood. SKIN: Warm, dry, normal turgor. Mild skin breakdown in the mid upper back although no open wounds or bleeding. Course - Re-evaluation Re-evalutation: Patient is talkative, alert, well-appearing, clear lungs on auscultation, no lower extremity edema, unremarkable vital signs. EKG shows sinus rhythm at a rate of 64, slightly flattened T waves inferiorly, no inverted T waves or ST segment changes in consecutive leads, normal axis. CBC, chemistry, troponin, BNP are all unremarkable. CT was performed because of reported elevated d-dimer earlier today and this shows progressive pulmonary fibrosis but no vascular congestion, pneumonia, mass, or pulmonary embolism. No dissection. Patient states she really has felt a lot better today and was having a lot of pain in her ribs and with deep breaths yesterday but this is essentially gone, no current complaints, she is asking to go home. Patient has excellent follow-up with multiple appointments over the next several days with her providers. She declines continuous pillowcase cutter consult for assistance at home, states she is doing fine and has offspring that help her. Patient ambulated without difficulty. Stable at time of discharge. - Vital Signs Vital signs: Temp Pulse Resp BP Pulse Ox 98.0 F 69 19 143/96 H 96 11/11/17 16:44 11/11/17 16:44 11/11/17 21:54 11/11/17 21:54 11/11/17 21:54 - Laboratory Result Diagrams: 11/11/17 19:05 11/11/17 19:05 Laboratory results interpreted by me: 11/11/17 11/11/17 19:05 19:05 RDW 16.0 H Urine Urobilinogen 4.0 H Discharge - Discharge Clinical Impression: Pulmonary fibrosis, Rib pain Condition: Stable Disposition: HOME, SELF-CARE Additional Instructions: Your CAT scan shows some progressive pulmonary fibrosis but no concerning findings on your evaluation and workup today. Follow-up with your appointments this week as planned. Return to the emergency department for any concerning or worsening symptoms including spiking fever, difficulty breathing, returned or worsening pain, or any other concerning or worsening symptoms. Referrals: TEODORA WILSON MD [ACTIVE STAFF] - Follow up in 3-5 days
[2017-11-11 19:43] LABS: CREATINE KINASE MB 1.77 ng/mL (<4.55); NT PRO BNP 313 pg/mL (5-900)
[2017-11-11 19:44] LABS: TROPONIN I < 0.012 ng/mL
[2017-11-11 19:59] LABS: APPEARANCE,URINE CLEAR; BILIRUBIN,URINE NEGATIVE (NEGATIVE); COLOR,URINE YELLOW; GLUCOSE, URINE NEGATIVE (NEGATIVE); KETONES,URINE NEGATIVE (NEGATIVE); LEUKOCYTE ESTERASE,URINE NEGATIVE (NEGATIVE); NITRITE,URINE NEGATIVE (NEGATIVE); PROTEIN,URINE NEGATIVE (NEGATIVE); URINE SPECIFIC GRAVITY 1.015
--- NOTE | 2017-11-11 21:08 | RADIOLOGY REPORT (SQ) ---
EXAM DESCRIPTION: CTA CHEST COMPLETED DATE/TIME: 11/11/2017 8:18 pm REASON FOR STUDY: sob, hypoxemia COMPARISON: 11/14/2016 TECHNIQUE: CT scan of the chest performed using helical scanning technique with dynamic intravenous contrast injection. Images reviewed with lung, soft tissue and bone windows. Reconstructed coronal and sagittal MPR images reviewed. Additional 3 dimensional post-processing performed to develop Maximal Intensity Projection images (WI P). All images stored on PACS. All CT scanners at this facility use dose modulation, iterative reconstruction, and/or weight based d osing when appropriate to reduce radiation dose to as low as reasonably achievable (ALARA). [facility]: Dose Right [facility]: CareDose [facility]: Dose Right [facility]: Teradose 4D [facility]: Aidin CONTRAST TYPE AND DOSE: contrast/concentration: Isovue 370.00 mg/ml; Total Contrast Delivered: 75.0 ml; Total Saline Delivered: 70.0 ml Contrast bolus optimized for the pulmonary arteries. Not diagnostic for the aorta. RENAL FUNCTION: GFR > 60. RADIATION DOSE: CT Rad equipment meets quality standard of care and radiation dose reduction techniq ues were employed. CTDIvol: 14.9 - 17.8 mGy. DLP: 621 mGy-cm. . LIMITATIONS: None. FINDINGS: LUNGS AND PLEURA: Progressive fibrosis -chronic interstitial disease. No masses, consolida tion, pneumothorax. No pleural effusions. AORTA AND GREAT VESSELS: No aneurysm. Contrast bolus not optimized for the aorta. HEART: No pericardial effusion. Moderate coronary artery calcifications. PULMONARY ARTERIES: No emboli visualized in the main pulmonary arteries or the segmental branches. HILAR AND MEDIASTINAL STRUCTURES: Similar scattered nodes. HARDWARE: None in the chest. UPPER ABDOMEN: No acute findings. Limited exam. THYROID AND OTHER SOFT TISSUES: No masses. No adenopathy. BONES: No acute finding. 3D MIPS: Confirm above findings. OTHER: No other significant finding. IMPRESSION: No emboli visualized in the main pulmonary arteries or the segmental branches. Progressive fibrosis -chronic interstitial disease. COMMENT: Quality ID # [id number]: Final reports with documentation of one or more dose reduction techniques (e.g., Automated exposure control, adjustment of the mA and/or kV according to patient size, use of iterative reconstruction technique) TECHNICAL DOCUMENTATION: JOB ID: [id number] [place]-72 2010 [employer]- All Rights Reserved Reading location - IP/workstation name: [email or web address]
[2017-11-11 21:58] VITALS: BP 143/96
--- NOTE | 2017-11-12 07:46 | EKG REPORT ---
SEVERITY:- ABNORMAL ECG - SINUS RHYTHM LEFT ATRIAL ABNORMALITY BORDERLINE T ABNORMALITIES, INFERIOR LEADS : Confirmed by: Ian Wilkinson MD 12-Nov-2017 07:45:31
== END 2017-11-11 21:58 | disposition home or self-care (01) ==
LOC: ER 16:34
DX: J84.10 Pulmonary fibrosis, unspecified (principal); R07.81 Pleurodynia; R06.02 Shortness of breath; J44.9 Chronic obstructive pulmonary disease, unspecified; I10 Essential (primary) hypertension; Z99.81 Dependence on supplemental oxygen
CPT/HCPCS: 36415; 71046; 71275; 80053; 81001; 82550; 82553; 83880; 84484; 85025; 85379; 87040; 93005; 93010; 99285

== ENCOUNTER → 2017-11-11 | Outpatient (CLI) | payer MEDICARE, OTHER ==
--- NOTE | 2017-11-11 14:27 | RADIOLOGY REPORT (SQ) ---
EXAM DESCRIPTION: CHEST PA/LATERAL COMPLETED DATE/TIME: 11/11/2017 2:06 pm REASON FOR STUDY: SHORTNESS OF BREATH COMPARISON: AP chest 09/02/2017 CT chest 11/14/2016 EXAM PARAMETERS: NUMBER OF VIEWS: two views TECHNIQUE: Digital Frontal and Lateral radiographic views of the chest acquired. RADIATION DOSE: NA LIMITATIONS: none FINDINGS: LUNGS AND PLEURA: There are increased interstitial markings in the mid and lower lungs lik meeta from chronic pulmonary fibrosis. Prior CT exam 11/14/2016 demonstrates honeycomb appearance aroun d the periphery of both lungs. No acute infiltrates. No pleural effusion or pneumothorax. MEDIASTINUM AND HILAR STRUCTURES: Large retrocardiac hiatal hernia HEART AND VASCULAR STRUCTURES: Moderate cardiomegaly, similar compared to previous studies. BONES: Osteoporotic. T12 kyphoplasty HARDWARE: None in the chest. OTHER: No other significant finding. IMPRESSION: Increased interstitial markings around the periphery of both lungs likely related to chr onic pulmonary fibrosis. This is better seen than on prior chest film 09/02/2017 due to technical fact ors TECHNICAL DOCUMENTATION: JOB ID: [id number] [employer]- All Rights Reserved Reading location - IP/workstation name: [email or web address]
[2017-11-11 14:58] LABS: ABSOLUTE EOSINOPHILS # (AUTO) 0.1 10^3/uL (0.0-0.6); ABSOLUTE LYMPHOCYTES (AUTO) 1.6 10^3/uL (0.5-4.7); ABSOLUTE MONOCYTES (AUTO) 0.6 10^3/uL (0.1-1.4); ABSOLUTE NEUT (AUTO) 3.8 10^3/uL (1.7-8.2); BASOPHILS % (AUTO) 0.4 % (0-2); EOSINOPHILS % (AUTO) 1.8 % (0-6); HEMATOCRIT 37.5 % (36.0-47.0); HEMOGLOBIN 12.4 g/dL (12.0-15.5); LYMPHOCYTES % (AUTO) 26.2 % (13-45); MEAN CORPUSCULAR HEMOGLOBIN 30.4 pg (27.0-33.4); MEAN CORPUSCULAR HGB CONC 33.2 g/dL (32.0-36.0); MEAN CORPUSCULAR VOLUME 92 fl (80-97); PLATELET COUNT 226 10^3/uL (150-450); RED BLOOD COUNT 4.09 10^6/uL (3.72-5.28); RED CELL DISTRIBUTION WIDTH 16.4 % (11.5-14.0); SEGMENTED NEUTROPHILS % (AUTO) 62.6 % (42-78); TOTAL CELLS COUNTED % (AUTO) 100 %; WHITE BLOOD COUNT 6.1 10^3/uL (4.0-10.5)
[2017-11-11 15:25] LABS: ALANINE AMINOTRANSFERASE 27 U/L (9-52); ALBUMIN 4.3 g/dL (3.5-5.0); ALKALINE PHOSPHATASE 107 U/L (38-126); ANION GAP 11 (5-19); ASPARTATE AMINO TRANSFERASE 23 U/L (14-36); BILIRUBIN,DIRECT 0.4 mg/dL (0.0-0.4); BILIRUBIN,TOTAL 0.7 mg/dL (0.2-1.3); BLOOD UREA NITROGEN 14 mg/dL (7-20); CARBON DIOXIDE 31 mmol/L (22-30); CHLORIDE 100 mmol/L (98-107); GLUCOSE 89 mg/dL (75-110); POTASSIUM 5.5 mmol/L (3.6-5.0); TOTAL PROTEIN 7.2 g/dL (6.3-8.2)
== END ==
LOC: RAD 13:36
PROVIDERS: ATTEND Physician Assistant
DX: R06.02 Shortness of breath (principal)
CPT/HCPCS: 36415; 71046; 80053; 85025; 85379

== ENCOUNTER → 2017-11-19 | Outpatient (CLI) | payer MEDICARE, OTHER ==
--- NOTE | 2017-11-19 14:41 | RADIOLOGY REPORT (SQ) ---
EXAM DESCRIPTION: CHEST PA/LATERAL COMPLETED DATE/TIME: 11/19/2017 1:33 pm REASON FOR STUDY: RIB PAIN; ACUTE ROD THORACIC BACK PAIN COMPARISON: None. NUMBER OF VIEWS: Two view. TECHNIQUE: Frontal and lateral radiographic views of the chest acquired. LIMITATIONS: None. FINDINGS: LUNGS AND PLEURA: Stable moderate chronic diffuse interstitial change. No focal infiltra chirag. No masses or effusions. MEDIASTINUM AND HILAR STRUCTURES: No masses or contour abnormalities. HEART AND VASCULATURE: Heart normal size. No evidence for failure. BONY STRUCTURES: Severe osteopenia. Suboptimal visualization in the lateral projection to evaluate for compression fractures. Dedicated thoracic spine may be a consideration based on clinical informa tion. HARDWARE: None. OTHER: No other significant finding. IMPRESSION: Stable moderate diffuse chronic pulmonary interstitial disease. Suboptimal visualizatio n of the thoracic spine on the lateral view to evaluate for compression fractures or other pathology to explain the history of acute thoracic back pain. TECHNICAL DOCUMENTATION: JOB ID: [id number] [employer]- All Rights Reserved Reading location - IP/workstation name: [email or web address]
--- NOTE | 2017-11-19 15:25 | RADIOLOGY REPORT (SQ) ---
EXAM DESCRIPTION: T SPINE AP/LAT COMPLETED DATE/TIME: 11/19/2017 1:33 pm REASON FOR STUDY: RIB PAIN; ACUTE ROD THORACIC BACK PAIN R07.81 PLEURODYNIA M54.6 PAIN IN THORACIC SPINE COMPARISON: None. NUMBER OF VIEWS: Two views. TECHNIQUE: AP and lateral radiographic images acquired of the thoracic spine. LIMITATIONS: None. FINDINGS: MINERALIZATION: Osteopenia. ALIGNMENT: Moderate scoliosis mid thoracic spine convex to the right. VERTEBRAE: Mild compression T7, T8 and mild to moderate compression T12 -age indeterminate. DISCS: No significant loss of height or significant narrowing. No large osteophytes. HARDWARE: None in the spine. MEDIASTINUM AND SOFT TISSUES: Normal heart size and aortic contour. No soft tissue abnormality. VISUALIZED LUNG HERRERA: Clear. OTHER: Status post kyphoplasty L1. IMPRESSION: 3 compression fractures as described above. Age indeterminate however were present on t he recent CT of the chest on 11/11/2017 status post kyphoplasty L1. Degenerative scoliosis. TECHNICAL DOCUMENTATION: JOB ID: [id number] [employer]- All Rights Reserved Reading location - IP/workstation name: [email or web address]
--- NOTE | 2017-11-19 15:27 | RADIOLOGY REPORT (SQ) ---
EXAM DESCRIPTION: RIBS BILATERAL W/O PA CHEST COMPLETED DATE/TIME: 11/19/2017 1:33 pm REASON FOR STUDY: RIB PAIN; ACUTE ROD THORACIC BACK PAIN R07.81 PLEURODYNIA M54.6 PAIN IN THORACIC SPINE COMPARISON: None. NUMBER OF VIEWS: Seven views. TECHNIQUE: Images acquired of the right and left ribs in the area of focal concern. LIMITATIONS: None. FINDINGS: RIBS: No acute displaced fracture. No worrisome bone lesions. LUNGS: Limited exam. No obvious pneumothorax. No pleural effusion. OTHER: No other significant finding. IMPRESSION: NO ACUTE DISPLACED RIB FRACTURE. COMMENT: SITE OF TRAUMA/COMPLAINT MARKED/STAMP COMPLETED: Yes TECHNICAL DOCUMENTATION: JOB ID: [id number] [employer]- All Rights Reserved Reading location - IP/workstation name: [email or web address]
== END ==
LOC: OD 12:19
PROVIDERS: ATTEND Family Medicine
DX: R07.81 Pleurodynia (principal); M54.6 Pain in thoracic spine; M41.84 Other forms of scoliosis, thoracic region; J84.9 Interstitial pulmonary disease, unspecified
CPT/HCPCS: 71046; 71110; 72070

== ENCOUNTER 2018-03-24 09:12 | Emergency (ER) | payer MEDICARE, OTHER ==
--- NOTE | 2018-03-24 09:20 | ER Document Report ---
ED Medical Screen (RME) - General Chief Complaint: Nausea/Vomiting Stated Complaint: NAUSEA Time Seen by Provider: 03/24/18 09:20 Notes: Patient is a 72-year-old female with history of COPD and hypothyroidism that presents to the emergency department for chief complaint of nausea, vomiting and abdominal pain. Patient reports she has been having these symptoms since Saturday, and seemingly not improving and getting worse over the period of time. Her pain is mainly epigastric region, but does extend to the lower abdomen in the middle as well. She has been dry heaving, not able to keep any liquids down and feels she is getting dehydrated. Denies any urinary symptoms or fevers. Denies any sick contacts that she is aware of. ROS: Unless otherwise stated in this report the patient's positive and negative responses for review of systems for constitutional, eyes, ENT, cardiovascular, respiratory, gastrointestinal, neurological, genitourinary, musculoskeletal, and integumentary systems and related systems to the presenting problem are either as stated in the HPI or were not pertinent or were negative for the symptoms and/or complaints related to the presenting medical problem. PHYSICAL EXAMINATION: Vital signs reviewed. GENERAL: Elderly female, nontoxic appearing, but appears uncomfortable HEAD: Atraumatic, normocephalic. EYES: Pupils equal round extraocular movements intact, conjunctiva are normal. ENT: Nares patent NECK: Normal range of motion CV: Heart regular rate and rhythm LUNGS: No respiratory distress Musculoskeletal: Normal range of motion NEUROLOGICAL: Normal speech PSYCH: Normal mood, normal affect. MDM: Patient seen and examined for rapid initial assessment. Vital signs reviewed. A comprehensive ED assessment and evaluation of the patient, analysis of test results and completion of the medical decision making process will be conducted by additional ED providers. *Note is created using voice recognition software and may contain spelling, syntax or grammatical errors. TRAVEL OUTSIDE OF THE [place] IN LAST 30 DAYS: No - Related Data Allergies/Adverse Reactions: amoxicillin [From Amoxil] Allergy (Verified 03/24/18 09:24) clarithromycin [From Biaxin] Allergy (Verified 03/24/18 09:24) Penicillins Allergy (Verified 03/24/18 09:24) Past Medical History - Past Medical History Cardiac Medical History: Reports: Hx Hypertension Denies: Hx Coronary Artery Disease, Hx Heart Attack Pulmonary Medical History: Reports: Hx Bronchitis, Hx COPD - Pulmonary Fibrosis , wear 2LNC continuously, Hx Pneumonia Denies: Hx Asthma Neurological Medical History: Denies: Hx Cerebrovascular Accident, Hx Seizures Renal/ Medical History: Denies: Hx Peritoneal Dialysis GI Medical History: Reports: Hx Gastroesophageal Reflux Disease, Hx Irritable Bowel Musculoskeltal Medical History: Reports Hx Arthritis - Osteoarthritis Psychiatric Medical History: Reports: Hx Depression Past Surgical History: Reports: Hx Orthopedic Surgery - L knee, Hx Tubal Ligation - Immunizations Hx Diphtheria, Pertussis, Tetanus Vaccination: No History of Influenza Vaccine for 03/2017 - 08/2017 Season: Yes Influenza Administration Date for 03/2017 - 08/2017 Season: 03/03/17 Physical Exam - Vital signs Vitals: Temp Pulse Resp BP Pulse Ox 97.6 F 94 18 126/89 H 97 03/24/18 09:18 03/24/18 09:18 03/24/18 09:18 03/24/18 09:18 03/24/18 09:18 Course - Vital Signs Vital signs: Temp Pulse Resp BP Pulse Ox 97.6 F 94 18 126/89 H 97 03/24/18 09:18 03/24/18 09:18 03/24/18 09:18 03/24/18 09:18 03/24/18 09:18 Doctor's Discharge - Discharge Referrals: TEODORA WILSON MD [Primary Care Provider] - Follow up as needed
[2018-03-24] MEDS ORDERED: RINGERS SOLUTION,LACTATED 1,000 ML IV ONE (09:24)
[2018-03-24] MEDS ORDERED: ONDANSETRON HCL INJ/PF 4 MG/2 ML SDV IV ONE (09:25)
[2018-03-24] MEDS ORDERED: PANTOPRAZOLE SODIUM 40 MG VIAL IV ONE (09:25)
--- NOTE | 2018-03-24 10:05 | ER Document Report ---
ED General - General Chief Complaint: Nausea/Vomiting Stated Complaint: NAUSEA Time Seen by Provider: 03/24/18 09:20 Mode of Arrival: Ambulatory Information source: Patient Notes: 72-year-old female with a history of COPD presents emergency department with complaints of nausea, vomiting, diarrhea, abdominal pain for the last 3 days. Patient states that they are not improving. Patient's abdominal pain is located in the epigastric area and radiates down to the suprapubic area. She describes it as an aching sensation. No alleviating or exacerbating factors. Patient states that she has been unable to keep any food or fluids down. She feels like she is getting dehydrated. She denies any sick contacts. Patient denies any fever, chills, rhinorrhea, sore throat, cough, dysuria, hematuria, melena, hematochezia. TRAVEL OUTSIDE OF THE [place] IN LAST 30 DAYS: No - HPI Onset: Other - 3 days Onset/Duration: Gradual Quality of pain: Achy Severity: Mild Associated symptoms: Diarrhea, Nausea, Vomiting Exacerbated by: Denies Relieved by: Denies Similar symptoms previously: No Recently seen / treated by doctor: No - Related Data Allergies/Adverse Reactions: amoxicillin [From Amoxil] Allergy (Verified 03/24/18 09:24) clarithromycin [From Biaxin] Allergy (Verified 03/24/18 09:24) Penicillins Allergy (Verified 03/24/18 09:24) Past Medical History - General Information source: Patient - Social History Smoking Status: Former Smoker Frequency of alcohol use: None Drug Abuse: None Family History: Reviewed & Not Pertinent Patient has suicidal ideation: No Patient has homicidal ideation: No - Past Medical History Cardiac Medical History: Reports: Hx Hypertension Denies: Hx Coronary Artery Disease, Hx Heart Attack Pulmonary Medical History: Reports: Hx Bronchitis, Hx COPD - Pulmonary Fibrosis , wear 2LNC continuously, Hx Pneumonia Denies: Hx Asthma Neurological Medical History: Denies: Hx Cerebrovascular Accident, Hx Seizures Renal/ Medical History: Denies: Hx Peritoneal Dialysis GI Medical History: Reports: Hx Gastroesophageal Reflux Disease, Hx Irritable Bowel Musculoskeletal Medical History: Reports Hx Arthritis - Osteoarthritis Psychiatric Medical History: Reports: Hx Depression Past Surgical History: Reports: Hx Orthopedic Surgery - L knee, Hx Tubal Ligation - Immunizations Hx Diphtheria, Pertussis, Tetanus Vaccination: No Review of Systems - Review of Systems Constitutional: No symptoms reported EENT: No symptoms reported Cardiovascular: No symptoms reported Gastrointestinal: Diarrhea, Nausea, Vomiting Genitourinary: No symptoms reported Female Genitourinary: No symptoms reported Musculoskeletal: No symptoms reported Skin: No symptoms reported Neurological/Psychological: No symptoms reported -: Yes All other systems reviewed and negative Physical Exam - Vital signs Vitals: Temp Pulse Resp BP Pulse Ox 97.6 F 94 18 126/89 H 97 03/24/18 09:18 03/24/18 09:18 03/24/18 09:18 03/24/18 09:18 03/24/18 09:18 - General Notes: PHYSICAL EXAMINATION: GENERAL: Well-appearing, well-nourished and in no acute distress. HEAD: Atraumatic, normocephalic. EYES: Pupils equal round and reactive to light, extraocular movements intact, conjunctiva are normal. ENT: Nares patent, oropharynx clear without exudates. Moist mucous membranes. NECK: Normal range of motion, supple without lymphadenopathy LUNGS: Breath sounds clear to auscultation bilaterally and equal. No wheezes rales or rhonchi. HEART: Regular rate and rhythm without murmurs ABDOMEN: Soft, tenderness to palpation in the epigastric area, periumbilical area, suprapubic area Female : deferred Musculoskeletal: Normal range of motion, no pitting or edema. No cyanosis. NEUROLOGICAL: Cranial nerves grossly intact. Normal speech, normal gait. Normal sensory, motor exams PSYCH: Normal mood, normal affect. SKIN: Warm, Dry, normal turgor, no rashes or lesions noted. Course - Re-evaluation Re-evalutation: 03/24/18 10:05 EKG: Ventricular rate 92, AZ interval 148, QRS duration 92, QTc 461, sinus rhythm. 03/24/18 12:43 Labs and imaging obtained. Labs are unremarkable. CT abdomen and pelvis was done. There is a T11 compression fracture seen. Patient does not know if she has had that fracture previously or not. Patient states that she has multiple fractures in her spine. Patient states that she still feeling slightly nauseated. Additional Zofran ordered. Vitals are stable. I discussed discharge with the patient. She is comfortable with discharge home. I will give her prescription for Zofran. Instructed the patient to take the medication as directed, to follow-up with her primary care physician this week, and to return to the emergency department if she has any worsening symptoms. The patient is agreeable with plan of care. 03/24/18 12:46 - Vital Signs Vital signs: Temp Pulse Resp BP Pulse Ox 97.6 F 94 21 H 139/70 H 98 03/24/18 09:18 03/24/18 09:18 03/24/18 11:40 03/24/18 11:40 03/24/18 11:40 - Laboratory Result Diagrams: 03/24/18 09:54 03/24/18 09:54 Laboratory results interpreted by me: 03/24/18 03/24/18 03/24/18 09:54 09:54 10:59 RDW 14.3 H Glucose 135 H Calcium 10.6 H Lipase 20.2 L Urine Ketones TRACE H Urine Urobilinogen 2.0 H Discharge - Discharge Clinical Impression: Viral illness, Gastroenteritis Condition: Good Disposition: HOME, SELF-CARE Instructions: Gastroenteritis (adult) ([facility]), Viral Syndrome ([facility]) Prescriptions: Ondansetron [Zofran Odt 4 mg Tablet] 1 tab PO Q4H PRN #15 tab.rapdis PRN Reason: For Nausea/Vomiting Referrals: TEODORA WILSON MD [Primary Care Provider] - Follow up as needed
[2018-03-24 10:12] LABS: ABSOLUTE EOSINOPHILS # (AUTO) 0.1 10^3/uL (0.0-0.6); ABSOLUTE LYMPHOCYTES (AUTO) 1.8 10^3/uL (0.5-4.7); ABSOLUTE MONOCYTES (AUTO) 0.6 10^3/uL (0.1-1.4); ABSOLUTE NEUT (AUTO) 5.7 10^3/uL (1.7-8.2); BASOPHILS % (AUTO) 0.3 % (0-2); EOSINOPHILS % (AUTO) 1.1 % (0-6); HEMOGLOBIN 14.3 g/dL (12.0-15.5); MEAN CORPUSCULAR HEMOGLOBIN 28.1 pg (27.0-33.4); MEAN CORPUSCULAR HGB CONC 33.2 g/dL (32.0-36.0); MEAN CORPUSCULAR VOLUME 85 fl (80-97); PLATELET COUNT 276 10^3/uL (150-450); RED BLOOD COUNT 5.08 10^6/uL (3.72-5.28); RED CELL DISTRIBUTION WIDTH 14.3 % (11.5-14.0); SEGMENTED NEUTROPHILS % (AUTO) 69.6 % (42-78); TOTAL CELLS COUNTED % (AUTO) 100 %; WHITE BLOOD COUNT 8.2 10^3/uL (4.0-10.5)
[2018-03-24 10:25] LABS: ALANINE AMINOTRANSFERASE 26 U/L (9-52); ALBUMIN 4.9 g/dL (3.5-5.0); ALKALINE PHOSPHATASE 122 U/L (38-126); ANION GAP 14 (5-19); ASPARTATE AMINO TRANSFERASE 26 U/L (14-36); BILIRUBIN,DIRECT 0.4 mg/dL (0.0-0.4); BILIRUBIN,TOTAL 1.1 mg/dL (0.2-1.3); BLOOD UREA NITROGEN 11 mg/dL (7-20); CALCIUM 10.6 mg/dL (8.4-10.2); CARBON DIOXIDE 27 mmol/L (22-30); CHLORIDE 101 mmol/L (98-107); GLUCOSE 135 mg/dL (75-110); LIPASE 20.2 U/L (23-300); POTASSIUM 4.8 mmol/L (3.6-5.0); SODIUM 141.6 mmol/L (137-145); TOTAL PROTEIN 8.2 g/dL (6.3-8.2)
--- NOTE | 2018-03-24 10:33 | RADIOLOGY REPORT (SQ) ---
EXAM DESCRIPTION: CHEST 2 VIEWS COMPLETED DATE/TIME: 03/24/2018 9:44 am REASON FOR STUDY: upper abdominal pain, vomiting COMPARISON: 07/05/2014. EXAM PARAMETERS: NUMBER OF VIEWS: two views TECHNIQUE: Digital Frontal and Lateral radiographic views of the chest acquired. RADIATION DOSE: NA LIMITATIONS: none FINDINGS: LUNGS AND PLEURA: Chronic elevation right diaphragm. Peripheral areas of scarring in both lungs stable. MEDIASTINUM AND HILAR STRUCTURES: No masses or contour abnormalities. HEART AND VASCULAR STRUCTURES: Heart normal size. No evidence for failure. BONES: No acute findings. HARDWARE: None in the chest. OTHER: Large hiatal hernia. IMPRESSION: NO ACUTE RADIOGRAPHIC FINDING IN THE CHEST. TECHNICAL DOCUMENTATION: JOB ID: [id number] [email or web address]- All Rights Reserved Reading location - IP/workstation name: [email or web address]
[2018-03-24 11:32] LABS: APPEARANCE,URINE CLOUDY; BILIRUBIN,URINE NEGATIVE (NEGATIVE); COLOR,URINE YELLOW; GLUCOSE, URINE NEGATIVE (NEGATIVE); KETONES,URINE TRACE mg/dL (NEGATIVE); LEUKOCYTE ESTERASE,URINE NEGATIVE (NEGATIVE); NITRITE,URINE NEGATIVE (NEGATIVE); PROTEIN,URINE NEGATIVE (NEGATIVE)
[2018-03-24 11:42] VITALS: BP 139/70
--- NOTE | 2018-03-24 11:43 | RADIOLOGY REPORT (SQ) ---
EXAM DESCRIPTION: CT ABD/PELVIS WITH IV ONLY COMPLETED DATE/TIME: 03/24/2018 11:28 am REASON FOR STUDY: abdominal pain COMPARISON: None. TECHNIQUE: CT scan of the abdomen and pelvis performed using helical scanning technique with dynamic intravenous contrast injection. No oral contrast. Images reviewed with lung, soft tissue, and bone windows. Reconstructed coronal and sagittal MPR images reviewed. Delayed images for evaluation of the urinary system also acquired. All images stored on PACS. All CT scanners at this facility use dose modulation, iterative reconstruction, and/or weight based d osing when appropriate to reduce radiation dose to as low as reasonably achievable (ALARA). [facility]: Dose Right [facility]: CareDose [facility]: Dose Right [facility]: Teradose 4D [facility]: Sapheneia CONTRAST TYPE AND DOSE: contrast/concentration: Isovue 350.00 mg/ml; Total Contrast Delivered: 82.0 ml; Total Saline Delivered: 68.0 ml RENAL FUNCTION: GFR > 60. RADIATION DOSE: CT Rad equipment meets quality standard of care and radiation dose reduction techniq ues were employed. CTDIvol: 10.8 - 15.3 mGy. DLP: 1435 mGy-cm.. LIMITATIONS: None. FINDINGS: LOWER CHEST: No acute findings. Intrathoracic stomach. LIVER: Normal size. No masses. No dilated ducts. SPLEEN: Normal size. No focal lesions. PANCREAS: No masses. No significant calcifications. No adjacent inflammation or peripancreatic fluid collections. Pancreatic duct not dilated. GALLBLADDER: Gallstones. No inflammatory changes to suggest cholecystitis. ADRENAL GLANDS: No significant masses or asymmetry. RIGHT KIDNEY AND URETER: No solid masses. No significant calcifications. No hydronephrosis or hyd roureter. LEFT KIDNEY AND URETER: No solid masses. No significant calcifications. No hydronephrosis or hydr oureter. AORTA AND VESSELS: No aneurysm. RETROPERITONEUM: No retroperitoneal adenopathy, hemorrhage or masses. BOWEL AND PERITONEAL CAVITY: Sigmoid diverticulosis. No masses or inflammatory changes. No free flui d or peritoneal masses. APPENDIX: Normal. PELVIS: No mass. No free fluid. Normal bladder. ABDOMINAL WALL: No masses. No hernias. BONES: Compression fracture T11 not present on chest CT 11/11/2017. Stable compression fracture super ior endplate T12. Kyphoplasty L1. OTHER: No other significant finding. IMPRESSION: Compression fracture T11 not present 11/11/2017. No acute findings in the abdomen or pel vis. TECHNICAL DOCUMENTATION: JOB ID: [id number] Quality ID # [id number]: Final reports with documentation of one or more dose reduction techniques (e.g., Au tomated exposure control, adjustment of the mA and/or kV according to patient size, use of iterative reconstruction technique) 2010 [employer]- All Rights Reserved Reading location - IP/workstation name: [email or web address]
[2018-03-24] MEDS ORDERED: ONDANSETRON 4 MG TAB.RAPDIS PO ONE (12:35)
--- NOTE | 2018-03-25 08:32 | EKG REPORT ---
SEVERITY:- BORDERLINE ECG - SINUS RHYTHM PROBABLE LEFT ATRIAL ABNORMALITY BORDERLINE T ABNORMALITIES, INFERIOR LEADS : Confirmed by: Cecilia Forrest 25-Mar-2018 08:32:05
== END 2018-03-24 13:46 | disposition home or self-care (01) ==
LOC: ER 09:12
DX: B34.9 Viral infection, unspecified (principal); K52.9 Noninfective gastroenteritis and colitis, unspecified; R11.2 Nausea with vomiting, unspecified; R19.7 Diarrhea, unspecified; R10.13 Epigastric pain; Z88.0 Allergy status to penicillin
CPT/HCPCS: 93005; 99285; 96361; 96374; 96375; 36415; 83690; 85025; 80053; 81001; 84484; 83605; 71046; 74177; 93010; A9270; C9113; J2405; J7120; S0119; S0164

== ENCOUNTER 2018-10-05 14:29 | Emergency (ER) | payer MEDICARE, OTHER ==
[2018-10-05] MEDS ORDERED: FENTANYL CITRATE INJ/PF 100 MCG/2 ML AMPUL IV ONE ×2 (15:10→16:23)
--- NOTE | 2018-10-05 15:35 | RADIOLOGY REPORT (SQ) ---
EXAM DESCRIPTION: SHOULDER RIGHT 2 OR MORE VIEWS COMPLETED DATE/TIME: 10/05/2018 3:26 pm REASON FOR STUDY: bed 5 +deformity +tenderness COMPARISON: None. NUMBER OF VIEWS: Two views. TECHNIQUE: Internal and external rotation images acquired of the right shoulder. LIMITATIONS: None. FINDINGS: MINERALIZATION: Osteopenia. BONES: Comminuted fracture of the proximal humerus. No involvement of the humeral head. JOINTS: No dislocation. VISUALIZED LUNGS AND RIBS: No pneumothorax. No rib fracture. SOFT TISSUES: No radiopaque foreign body. OTHER: No other significant finding. IMPRESSION: Minimally displaced proximal humeral fracture. TECHNICAL DOCUMENTATION: JOB ID: [id number] [employer]- All Rights Reserved Reading location - IP/workstation name: [email or web address]
--- NOTE | 2018-10-05 15:36 | RADIOLOGY REPORT (SQ) ---
EXAM DESCRIPTION: CHEST SINGLE VIEW COMPLETED DATE/TIME: 10/05/2018 3:26 pm REASON FOR STUDY: fall, right side pain COMPARISON: Sure EXAM PARAMETERS: NUMBER OF VIEWS: One view. TECHNIQUE: Single frontal radiographic view of the chest acquired. RADIATION DOSE: NA LIMITATIONS: None. FINDINGS: LUNGS AND PLEURA: No opacities, masses or pneumothorax. No pleural effusion. MEDIASTINUM AND HILAR STRUCTURES: No masses. Contour normal. HEART AND VASCULAR STRUCTURES: Heart normal in size. Normal vasculature. BONES: Marked osteopenia. No obvious rib fractures. HARDWARE: None in the chest. OTHER: Large retrocardiac hiatal hernia. IMPRESSION: Proximal humeral fracture previously noted. No acute pulmonary disease. TECHNICAL DOCUMENTATION: JOB ID: [id number] [employer]- All Rights Reserved Reading location - IP/workstation name: [email or web address]
--- NOTE | 2018-10-05 16:22 | ER Document Report ---
ED General - General Chief Complaint: Fall Stated Complaint: SHOULDER INJURY Time Seen by Provider: 10/05/18 14:42 Primary Care Provider: TEODORA WILSON MD [Primary Care Provider] - Follow up in 3-5 days Notes: Patient is a 73-year-old female that presents to the emergency department for chief complaint of right shoulder injury after a fall. Patient states that this afternoon she got up to go to the bathroom, and believes that her walker got caught on her oxygen cord, she then took her oxygen off, to go to the bathroom, and thinks it got wrapped around her ankle, and then she tripped and fell onto her right side. She states she landed on hardwood floor, directly onto her right shoulder. She denies having any head injury, loss of consciousness or neck injury. Denies any numbness, tingling or weakness at this time. Aside from saying that she cannot lift her right arm because of the excruciating pain. She currently rates her pain as a 9 out of 10 describes it as a constant aching sensation in the right shoulder. She denies having any pain in her hips or legs. She states she is able to move her legs without any difficulty or pain. Past Medical History: Osteoporosis, COPD, chronic low back pain, arthritis, hypertension Past Surgical History: Kyphoplasty, knee replacement surgery Social History: Former smoker, denies current alcohol or drug use. Family History: Reviewed and noncontributory for presenting illness Allergies: Reviewed, see documented allergy list. REVIEW OF SYSTEMS: Other than noted above, the 12 point review of systems was reviewed with the patient and were negative, all pertinent findings are included in the HPI. PHYSICAL EXAMINATION: Vital signs reviewed, nursing noted reviewed. GENERAL: Elderly female, appears uncomfortable on exam HEAD: Atraumatic, normocephalic. EYES: Eyes appear normal, extraocular movements intact, sclera anicteric, conjunctiva are normal. ENT: nares patent, oropharynx clear without exudates. Moist mucous membranes. NECK: Normal range of motion, supple without lymphadenopathy LUNGS: Breath sounds clear to auscultation bilaterally and equal. No wheezes rales or rhonchi. HEART: Regular rate and rhythm without murmurs ABDOMEN: Soft, nontender, normoactive bowel sounds. No rebound, guarding, or rigidity. No masses appreciated. EXTREMITIES: The right shoulder, is swollen, and there is an area of ecchymosis over the anterior lateral aspect of the right shoulder, he does appear to be gross deformity as well, it is tender to palpate. Patient has extremely limited range of motion of the right shoulder secondary to pain. Patient's elbow is unremarkable as well as her right wrist. She has excellent range of motion of the hips bilaterally, without any pain or difficulty, no deformities noted. She does have trace bilateral lower extremity edema which she states is chronic. Neurovascular intact distally, particularly in the right arm, there is no loss of sensation over the deltoid, and pulses are equal bilaterally in all extremities. NEUROLOGICAL: No focal neurological deficits. Moves all extremities spontaneously Motor and sensory grossly intact on exam. PSYCH: Normal mood, normal affect. SKIN: Warm, Dry, normal turgor, no rashes or lesions noted on exposed skin TRAVEL OUTSIDE OF THE [place] IN LAST 30 DAYS: No - Related Data Allergies/Adverse Reactions: amoxicillin [From Amoxil] Allergy (Verified 03/24/18 09:24) clarithromycin [From Biaxin] Allergy (Verified 03/24/18 09:24) Penicillins Allergy (Verified 03/24/18 09:24) Past Medical History - Social History Smoking Status: Former Smoker Family History: Reviewed & Not Pertinent - Past Medical History Cardiac Medical History: Reports: Hx Hypertension Denies: Hx Coronary Artery Disease, Hx Heart Attack Pulmonary Medical History: Reports: Hx Bronchitis, Hx COPD - Pulmonary Fibrosis, wear 2LNC continuously, Hx Pneumonia Denies: Hx Asthma Neurological Medical History: Denies: Hx Cerebrovascular Accident, Hx Seizures Renal/ Medical History: Denies: Hx Peritoneal Dialysis GI Medical History: Reports: Hx Gastroesophageal Reflux Disease, Hx Irritable Bowel Musculoskeletal Medical History: Reports Hx Arthritis - Osteoarthritis Psychiatric Medical History: Reports: Hx Depression Past Surgical History: Reports: Hx Orthopedic Surgery - L knee, Hx Tubal Ligation - Immunizations Hx Diphtheria, Pertussis, Tetanus Vaccination: No Physical Exam - Vital signs Vitals: Temp Pulse Resp BP Pulse Ox 97.5 F 76 18 135/83 H 98 10/05/18 14:29 10/05/18 14:29 10/05/18 14:29 10/05/18 14:29 10/05/18 14:29 Course - Re-evaluation Re-evalutation: Patient seen and examined vital signs reviewed. Laboratory data and/or imaging were ordered as appropriate for the patient's presenting symptoms and complaint, with consideration of any critical or life threatening conditions that may be associated with their obtained history and exam as noted above. Patient was treated with IV fentanyl for pain Results were reviewed when available and demonstrated proximal humerus fracture of the right, without dislocation. The patient was re-evaluated and was improved after treatment, and shoulder immobilization. Evaluation was most consistent with fall, with proximal right humerus fracture, patient was placed in a shoulder immobilizer, and she does have oxycodone at home and does see the pain clinic, and was advised to take these medications to help with her pain otherwise and advised to follow-up with orthopedic surgery she is given a referral. Results were discussed with the patient at this point, after careful consideration I feel that that patient can be discharged from the emergency department, the patient was educated treatments and reasons to return to the emergency department based on their presumed diagnosis as noted above, they were advised to followup with a primary care physician in 2-3 days. Patient was agreeable to plan of care. *Note is created using voice recognition software and may contain spelling, syntax or grammatical errors. Shoulder X-Ray 10/05/18 00:00 IMPRESSION: Minimally displaced proximal humeral fracture. Chest X-Ray 10/05/18 15:10 IMPRESSION: Proximal humeral fracture previously noted. No acute pulmonary disease. - Vital Signs Vital signs: Temp Pulse Resp BP Pulse Ox 97.9 F 74 18 102/84 100 10/05/18 17:16 10/05/18 17:16 10/05/18 17:16 10/05/18 17:16 10/05/18 17:16 Procedures - Immobilization Right Shoulder Pre-Proc Neuro Vasc Exam: Normal Immobilizer type: Shoulder immobilizer Performed by: PCT Post-Proc Neuro Vasc Exam: Normal Alignment checked and good: Yes Discharge - Discharge Clinical Impression: Closed fracture of right proximal humerus Qualifiers: Encounter type: initial encounter Fracture morphology: unspecified fracture morphology Qualified Code(s): S42.201A - Unspecified fracture of upper end of right humerus, initial encounter for closed fracture Fall Qualifiers: Encounter type: initial encounter Qualified Code(s): W19.XXXA - Unspecified fall, initial encounter Condition: Stable Disposition: HOME, SELF-CARE Instructions: Fracture Proximal Humerus Additional Instructions: Please wear the sling/shoulder immobilizer, as much as possible, when you are not wearing it I would recommend holding her hand over your heart, to minimize movement of your shoulder, particularly with bathing. Please use assistance, when getting around with a cane in your left hand, to help stabilize yourself to prevent any further falls. You may take the prescribed pain medication only if needed for breakthrough pain, I would recommend taking 1000 mg of acetaminophen/Tylenol, every 8 hours to help with pain otherwise. Please follow-up with orthopedic group listed below. [facility] [address] [address] Prescriptions: Oxycodone HCl [Oxycontin Ir 5 Mg Tablet] 1 mg PO Q8H PRN #15 tablet PRN Reason: shoulder pain Referrals: TEODORA WILSON MD [Primary Care Provider] - Follow up in 3-5 days
[2018-10-05 17:17] VITALS: BP 102/84
== END 2018-10-05 17:16 | disposition home or self-care (01) ==
LOC: ER 14:29
DX: S42.201A Unspecified fracture of upper end of right humerus, initial encounter for closed fracture (principal); M25.511 Pain in right shoulder; W19.XXXA Unspecified fall, initial encounter; Z99.81 Dependence on supplemental oxygen; J44.9 Chronic obstructive pulmonary disease, unspecified; Z87.891 Personal history of nicotine dependence; I10 Essential (primary) hypertension
CPT/HCPCS: 96376; 99283; 96374; 71045; 73030; L3650; J3010

== ENCOUNTER → 2018-12-10 | Outpatient (CLI) | payer MEDICARE, OTHER ==
--- NOTE | 2018-12-10 14:15 | WOMENS IMAGING REPORT ---
EXAM DESCRIPTION: BONE DENSITY HIP/SPINE COMPLETED DATE/TIME: 12/10/2018 1:58 pm REASON FOR STUDY: M85.89 OTHER SPECIFIED DISORDERS OF BONE DENSITY AND STRUCTURE, MULTIPLE SI M85.89 OTH DISRD OF BONE DENSITY AND STRUCTURE, MULTIPLE SIT COMPARISON: 2006 TECHNIQUE: Dual-Energy X-ray Absorptiometry (DEXA) of the AP Spine and Hip. LIMITATIONS: None. FINDINGS: LUMBAR SPINE: The bone mineral density (BMD) measured from L1-L4 in the AP projection correlates with a T-score of -1.6, which is osteopenic as defined by the World Health Organization. BMD Change vs Baseline: No change HIP: The bone mineral density (BMD) measured in the left femoral neck at the hip correlates with a T-score of -3.3, which is osteoporotic as defined by the World Health Organization. BMD Change vs Baseline: This represents a 23% decline in bone density since 2006 10 year Fracture Risk Assessment: Major Osteoporotic Fracture: Not reported, prior vertebral body fracture Hip Fracture: Not reported, prior vertebral body fracture IMPRESSION: 1. LUMBAR SPINE WHO CLASSIFICATION: Osteopenic 2. HIP WHO CLASSIFICATION: Osteoporotic OVERALL ASSESSMENT: WHO CLASSIFICATION: Osteoporotic COMMENT: The World Health Organization defines low BMD as follows: T-score: Normal: Greater than -1.0 Osteopenia: Between -1.0 and -2.5 Osteoporosis: Less than -2.5 without fractures Established osteoporosis: Less than -2.5 with fractures In general, you may wish to consider: Diagnosis Treatment Follow-up DEXA Normal BMD Prevention 2-3 years Osteopenia Prevention/Therapy 1-2 years Osteoporosis Therapy Yearly TECHNICAL DOCUMENTATION: JOB ID: [id number] [employer]- All Rights Reserved Reading location - IP/workstation name: [email or web address]
== END ==
LOC: WI 15:37
PROVIDERS: ATTEND Physician Assistant
DX: M81.0 Age-related osteoporosis without current pathological fracture (principal)
CPT/HCPCS: 77080

== ENCOUNTER → 2020-01-25 | Outpatient (CLI) | payer MEDICARE, OTHER ==
--- NOTE | 2020-01-25 16:18 | RADIOLOGY REPORT (SQ) ---
EXAM DESCRIPTION: CHEST 2 VIEWS IMAGES COMPLETED DATE/TIME: 01/25/2020 2:31 pm REASON FOR STUDY: J84.10 PULMONARY FIBROSIS, UNSPECIFIED COMPARISON: None. EXAM PARAMETERS: NUMBER OF VIEWS: two views TECHNIQUE: Digital Frontal and Lateral radiographic views of the chest acquired. RADIATION DOSE: NA LIMITATIONS: none FINDINGS: LUNGS AND PLEURA: Chronic interstitial changes. MEDIASTINUM AND HILAR STRUCTURES: Hiatal hernia. HEART AND VASCULAR STRUCTURES: Heart normal size. No evidence for failure. BONES: No acute findings. HARDWARE: None in the chest. OTHER: No other significant finding. IMPRESSION: Chronic lung changes. Hiatal hernia. TECHNICAL DOCUMENTATION: JOB ID: [id number] 2010 [employer]- All Rights Reserved Reading location - IP/workstation name: [email or web address]
--- NOTE | 2020-01-25 16:19 | RADIOLOGY REPORT (SQ) ---
EXAM DESCRIPTION: CT CHEST WITHOUT IMAGES COMPLETED DATE/TIME: 01/25/2020 2:14 pm REASON FOR STUDY: J84.10 PULMONARY FIBROSIS, UNSPECIFIED J84.10 PULMONARY FIBROSIS, UNSPECIFIED COMPARISON: 01/01/2019 TECHNIQUE: CT scan performed of the chest without intravenous contrast. Images reviewed with lung, soft tissue and bone windows. Reconstructed coronal and sagittal MPR images reviewed. All images st ored on PACS. All CT scanners at this facility use dose modulation, iterative reconstruction, and/or weight based d osing when appropriate to reduce radiation dose to as low as reasonably achievable (ALARA). [facility]: Dose Right [facility]: CareDose [facility]: Dose Right [facility]: Teradose 4D [facility]: Smart [employer] RADIATION DOSE: CT Rad equipment meets quality standard of care and radiation dose reduction techniq ues were employed. CTDIvol: 11.1 mGy. DLP: 398 mGy-cm. mGy. LIMITATIONS: No technical limitations. FINDINGS: LUNGS AND PLEURA: Severe emphysematous change with upper lobe predominant panacinar and pa raseptal emphysema. Scattered additional interlobular septal thickening and fibrotic change without definitive honeycombing. No significant ground-glass opacities. No focal consolidation. No pleural effusion or pneumothorax. HILAR AND MEDIASTINAL STRUCTURES: Stable pretracheal node measuring 9 mm in short axis (series 3, ashley ge 21). No discrete hilar adenopathy. HEART AND VASCULAR STRUCTURES: Heavy three-vessel coronary atherosclerosis. No pericardial effusion. Normal heart size. UPPER ABDOMEN: Hiatal hernia. No acute findings. Vascular calcifications. THYROID AND OTHER SOFT TISSUES: No masses. No adenopathy. BONES: No acute bony abnormality. No discrete lytic or blastic osseous lesions. Evidence of prior k yphoplasty. Additional T7 compression deformity appears progressed from prior exam dated 01/01/2019. HARDWARE: None in the chest. OTHER: No other significant findings. IMPRESSION: 1. Grossly stable emphysematous and chronic interstitial fibrotic change with a nonspec ific pattern. 2. Progression of a compression deformity of the T7 vertebral body. Recommend correlation with rima ent symptoms. MRI could be considered for further evaluation of chronicity. TECHNICAL DOCUMENTATION: JOB ID: [id number] Quality ID # [id number]: Final reports with documentation of one or more dose reduction techniques (e.g., Au tomated exposure control, adjustment of the mA and/or kV according to patient size, use of iterative reconstruction technique) 2010 [employer] All Rights Reserved Reading location - IP/workstation name: [email or web address]
== END ==
LOC: RAD 13:51
PROVIDERS: ATTEND Registered Nurse
DX: J84.10 Pulmonary fibrosis, unspecified (principal); R07.81 Pleurodynia; Z91.81 History of falling
CPT/HCPCS: 71046; 71250

== ENCOUNTER → 2020-04-05 | Outpatient (CLI) | payer MEDICARE, OTHER ==
[2020-04-05 17:42] LABS: APPEARANCE,URINE CLEAR; BILIRUBIN,URINE NEGATIVE (NEGATIVE); COLOR,URINE AMBER; GLUCOSE, URINE NEGATIVE (NEGATIVE); KETONES,URINE NEGATIVE (NEGATIVE); LEUKOCYTE ESTERASE,URINE NEGATIVE (NEGATIVE); NITRITE,URINE NEGATIVE (NEGATIVE); PROTEIN,URINE 30 mg/dL (NEGATIVE); URINE SPECIFIC GRAVITY 1.016
[2020-04-05 17:45] LABS: HEMATOCRIT 41.7 % (36.0-47.0); MEAN CORPUSCULAR HEMOGLOBIN 29.6 pg (27.0-33.4); MEAN CORPUSCULAR HGB CONC 33.5 g/dL (32.0-36.0); MEAN CORPUSCULAR VOLUME 89 fl (80-97); PLATELET COUNT 233 10^3/uL (150-450); RED BLOOD COUNT 4.71 10^6/uL (3.72-5.28); RED CELL DISTRIBUTION WIDTH 15.6 % (11.5-14.0); WHITE BLOOD COUNT 6.2 10^3/uL (4.0-10.5)
[2020-04-05 18:13] LABS: ALBUMIN 4.8 g/dL (3.5-5.0); ALKALINE PHOSPHATASE 136 U/L (38-126); ANION GAP 11 (5-19); ASPARTATE AMINO TRANSFERASE 33 U/L (14-36); BILIRUBIN,DIRECT 0.3 mg/dL (0.0-0.4); BILIRUBIN,TOTAL 1.2 mg/dL (0.2-1.3); BLOOD UREA NITROGEN 13 mg/dL (7-20); CARBON DIOXIDE 26 mmol/L (22-30); CHLORIDE 101 mmol/L (98-107); GLUCOSE 110 mg/dL (75-110); TOTAL PROTEIN 7.8 g/dL (6.3-8.2)
[2020-04-05 18:31] LABS: POTASSIUM 4.6 mmol/L (3.6-5.0)
== END ==
LOC: OD 16:53
PROVIDERS: ATTEND Internal Medicine Gastroenterology
DX: R35.1 Nocturia (principal)
CPT/HCPCS: 36415; 80053; 81001; 85027

== ENCOUNTER → 2020-04-13 | Outpatient (CLI) | payer MEDICARE, OTHER ==
--- NOTE | 2020-04-13 08:24 | WOMENS IMAGING REPORT ---
EXAM DESCRIPTION: U/S ABDOMEN LIMITED IMAGES COMPLETED DATE/TIME: 04/13/2020 8:04 am REASON FOR STUDY: R11.0 NAUSEA R11.0 NAUSEA R10.9 UNSPECIFIED ABDOMINAL PAIN COMPARISON: None. TECHNIQUE: Dynamic and static grayscale images acquired of the abdomen and recorded on PACS. Additio nal selected color Doppler and spectral images recorded. LIMITATIONS: None. FINDINGS: PANCREAS: Obscured by overlying bowel gas. LIVER: Fatty infiltration. No focal lesions. LIVER VASCULATURE: Normal directional flow of the main portal vein and hepatic veins. GALLBLADDER: Gallstones. No wall thickening or pericholecystic edema. ULTRASOUND-DETECTED REIS'S SIGN: Negative. INTRAHEPATIC DUCTS AND COMMON DUCT: CBD and intrahepatic ducts normal caliber. No filling defects. INFERIOR VENA CAVA: Normal flow. AORTA: Visualized abdominal aorta is normal in caliber. RIGHT KIDNEY: Small cyst. No hydronephrosis. Normal echogenicity. PERITONEAL AND RIGHT PLEURAL SPACE: No ascites or effusions. OTHER: No other significant findings. IMPRESSION: Hepatic steatosis. Gallstones. TECHNICAL DOCUMENTATION: JOB ID: [id number] [employer]- All Rights Reserved Reading location - IP/workstation name: [email or web address]
--- OUTSIDE RECORDS SUMMARY | 2020-04-14 17:57 | XMS REPORT ---
:1945 Author Organization [facility] Address [facility] [address] [place] [address] Care Team Providers Name Role Phone WILSON Primary Care Physician Unavailable Allergies, Adverse Reactions, Alerts Allergy Name Allergy Status Severity Reaction(s) Onset Inactive Treat ing Comments Type Date Date Clinician Ampicillin Allergy to Active substance 11-26 00:00: 00 Clarithromyci Allergy to Active n substance 11-26 00:00: 00 Amoxicillin Allergy to Active substance Biaxin Allergy to Active substance Medications Ordered Filled Start Stop Current Ordering Indication Dosage Frequency Signature Comments Components Medication Medication Date Date Medication? Clinician (SIG) Name Name pantoprazol No 40mg pantoprazo e 40 mg 02-06 le 40 mg tablet,walt 00:00: tablet,del yed release 00 ayed 40 mg by release 40 oral route. mg by oral route. acyclovir 5 No acyclovir % topical 5 % ointment topical ointment Advair No 1{puff} Q12H Advair Diskus 100 Diskus 100 mcg-50 mcg-50 mcg/dose mcg/dose powder for powder for inhalation inhalation 1 {puff} 1 {puff} every 12 every 12 hours by hours by inhalation inhalation route. route. albuterol No 2.5mg albuterol sulfate 2.5 sulfate mg/3 mL 2.5 mg/3 (0.083 %) mL (0.083 solution %) for solution nebulizatio for n 2.5 mg nebulizati by on 2.5 mg inhalation by route. inhalation route. alprazolam No alprazolam 0.5 mg 0.5 mg tablet 0.5 tablet 0.5 mg by oral mg by oral route. route. amlodipine No amlodipine amlodipine No 1{capsu amlodipine 10 le} 10 mg-benazepr mg-benazep il 20 mg ril 20 mg capsule 1 capsule 1 {capsule} {capsule} by oral by oral route. route. amlodipine No amlodipine 5 mg tablet 5 mg TK 1 T PO tablet TK QD 1 T PO QD atorvastati No atorvastat n 10 mg in 10 mg tablet tablet azithromyci No azithromyc n 250 mg in 250 mg tablet tablet benzonatate No benzonatat 100 mg e 100 mg capsule capsule budesonide No budesonide DR - ER 3 DR - ER 3 mg mg capsule,del capsule,de ayed,extend layed,exte ed release nded release bupropion No bupropion HCl XL 150 HCl XL 150 mg 24 hr mg 24 hr tablet, tablet, extended extended release release Celebrex No Celebrex Celebrex No Celebrex 100 mg 100 mg capsule capsule citalopram No citalopram 20 mg 20 mg tablet TAKE tablet ONE TABLET TAKE ONE BY MOUTH TABLET BY DAILY MOUTH DAILY clindamycin No clindamyci HCl 300 mg n HCl 300 capsule mg capsule take 2 take 2 capsules by capsules mouth 1 by mouth 1 hour prior hour prior to to procedure procedure diazepam 5 No diazepam 5 mg tablet mg tablet diclofenac No diclofenac 1 % topical 1 % gel topical gel DOK 100 mg No DOK 100 mg capsule capsule TAKE 1 TAKE 1 CAPSULE BY CAPSULE BY MOUTH 1 - 2 MOUTH 1 - times daily 2 times NEEDED daily NEEDED fluticasone No 1{spray fluticason propionate } e 50 propionate mcg/actuati 50 on nasal mcg/actuat spray,suspe ion nasal nsion 1 spray,susp {spray} by ension 1 nasal {spray} by route. nasal route. gabapentin No 300mg BID gabapentin 300 mg 300 mg capsule capsule 300 mg 300 mg twice a day twice a by oral day by route. oral route. glycopyrrol No glycopyrro ate 1 mg late 1 mg tablet tablet hydrocodone No hydrocodon 10 e 10 mg-acetamin mg-acetami ophen 325 nophen 325 mg tablet mg tablet hydrocodone No hydrocodon 5 e 5 mg-acetamin mg-acetami ophen 325 nophen 325 mg tablet mg tablet take 1 take 1 tablet by tablet by mouth four mouth four times a day times a if needed day if for pain needed for pain hydrocodone No hydrocodon 7.5 e 7.5 mg-acetamin mg-acetami ophen 325 nophen 325 mg tablet mg tablet take 1 take 1 tablet by tablet by mouth every mouth 6 hours if every 6 needed for hours if pain needed for pain hydromorpho No hydromorph ne 2 mg one 2 mg tablet tablet hydromorpho No hydromorph ne 4 mg one 4 mg tablet tablet levofloxaci No levofloxac n 500 mg in 500 mg tablet tablet levothyroxi No 125ug levothyrox ne 125 mcg ine 125 tablet 125 mcg tablet ugs by oral 125 ugs by route. oral route. levothyroxi No levothyrox ne 137 mcg ine 137 tablet mcg tablet levothyroxi No levothyrox ne 150 mcg ine 150 tablet take mcg tablet 1 tablet by take 1 mouth once tablet by daily mouth once daily lidocaine 5 No lidocaine % topical 5 % patch topical patch Lipitor No Lipitor metoprolol No metoprolol tartrate 25 tartrate mg tablet 25 mg take 1/2 tablet tablet by take 1/2 mouth twice tablet by a day mouth twice a day mirtazapine No mirtazapin 15 mg e 15 mg tablet tablet mupirocin 2 No mupirocin % topical 2 % ointment topical ointment Nucynta 50 No Nucynta 50 mg tablet mg tablet ondansetron No ondansetro 4 mg n 4 mg disintegrat disintegra ing tablet ting tablet ondansetron No 4mg ondansetro HCl 4 mg n HCl 4 mg tablet 4 tablet 4 mg by oral mg by oral route. route. oxycodone No oxycodone 10 mg 10 mg tablet tablet oxycodone No oxycodone 15 mg 15 mg tablet 15 tablet 15 mg twice a mg twice a day by oral day by route. oral route. oxycodone-a No oxycodone- cetaminophe acetaminop n 5 mg-325 hen 5 mg tablet mg-325 mg tablet pantoprazol No pantoprazo e 40 mg le 40 mg tablet,walt tablet,del yed release ayed Take 1 release tablet Take 1 every day tablet by oral every day route. by oral route. PreviDent No PreviDent 5000 Dry 5000 Dry Mouth 1.1 % Mouth 1.1 gel USE A % gel USE PEA SIZED A PEA AMOUNT AND SIZED BRUSH WITH AMOUNT AND TWICE DAILY BRUSH WITH TWICE DAILY ProAir HFA No ProAir HFA 90 90 mcg/actuati mcg/actuat on aerosol ion inhaler aerosol inhaler ropinirole No ropinirole 0.5 mg 0.5 mg tablet tablet sertraline No sertraline 100 mg 100 mg tablet tablet sertraline No sertraline 50 mg 50 mg tablet tablet Spiriva No Spiriva Respimat Respimat 2.5 2.5 mcg/actuati mcg/actuat on solution ion for solution inhalation for inhalation sulfamethox No sulfametho azole 800 xazole 800 mg-trimetho mg-trimeth prim 160 mg oprim 160 tablet mg tablet Synthroid No Synthroid 100 mcg 100 mcg tablet tablet temazepam No temazepam 15 mg 15 mg capsule capsule temazepam No temazepam 30 mg 30 mg capsule 30 capsule 30 mg by oral mg by oral route. route. tramadol 50 No tramadol mg tablet 50 mg tablet trazodone No trazodone trazodone No trazodone 50 mg 50 mg tablet tablet trimethoben No 300mg trimethobe zamide 300 nzamide mg capsule 300 mg 300 mg by capsule oral route. 300 mg by oral route. valacyclovi No valacyclov r 500 mg ir 500 mg tablet tablet Xtampza ER No 1{tbl} Xtampza ER 13.5 mg 13.5 mg capsule capsule sprinkle 1 sprinkle 1 {tbl} by {tbl} by oral route. oral route. Tirosint No Tirosint 125 mcg 125 mcg capsule capsule ciprofloxac No ciprofloxa in 500 mg lisa 500 mg tablet tablet metronidazo No metronidaz le 500 mg ole 500 mg tablet tablet atorvastati No 10mg atorvastat n 20 mg in 20 mg tablet 10 tablet 10 mg by oral mg by oral route. route. citalopram No 10mg citalopram 10 mg 10 mg tablet 10 tablet 10 mg by oral mg by oral route. route. docusate No 100mg docusate sodium 100 sodium 100 mg capsule mg capsule 100 mg by 100 mg by oral route. oral route. Proventil No 2{puff} Proventil HFA 90 HFA 90 mcg/actuati mcg/actuat on aerosol ion inhaler 2 aerosol {puff}s by inhaler 2 inhalation {puff}s by route. inhalation route. ropinirole No .5mg ropinirole 0.25 mg 0.25 mg tablet 0.5 tablet 0.5 mg by oral mg by oral route. route. Xanax 0.5 No .5mg Xanax 0.5 mg tablet mg tablet 0.5 mg by 0.5 mg by oral route. oral route. Problems Condition Condition Condition Status Onset Resolution Last Treatin g Comments Name Details Category Date Date Treatment Clinician Date Closed Closed Problem Active fracture of Fracture of 1-02 upper end Upper End 00:00: of humerus of Humerus 00 History of History of Problem Active 2018-06 operative Operative 2-18 procedure Procedure 00:00: on shoulder on Shoulder 00 Closed Closed Problem Active 2018-06 fracture of Fracture of 2-03 upper end Upper End 00:00: of humerus of Humerus 00 Serum Serum Problem Active 2018-06 creatinine Creatinine 2-03 raised Raised 00:00: 00 Fracture of Fracture of Problem Active 2018-06 upper end Upper End 2-03 of humerus of Humerus 00:00: 00 Drug Drug Problem Active 2018-06 therapy Therapy 2-03 finding Finding 00:00: 00 Closed Closed Problem Active fracture of Fracture of 5-28 shaft of Shaft of 00:00: ulna Ulna 00 Closed Closed Problem Active fracture of Fracture of 5-21 surgical Surgical 00:00: neck of Neck of 00 humerus Humerus Hypothyroid Hypothyroid Problem Active ism ism Hyperlipide Hyperlipide Problem Active wally wally Mixed Mixed Problem Active anxiety and Anxiety and depressive Depressive disorder Disorder Continuous Continuous Problem Active opioid Opioid dependence Dependence Hypertensiv Hypertensiv Problem Active e disorder e Disorder Chronic Chronic Problem Active obstructive Obstructive lung Lung disease Disease Gastroesoph Gastroesoph Problem Active ageal ageal reflux Reflux disease Disease Patient Patient Problem Active encounter Encounter status Status Therapeutic Therapeutic Problem Active opioid Opioid induced Induced constipatio Constipatio n n Procedures Procedure Date / Time Performed Performing Clinician Devic e XR, shoulder 2019-07-09 00:00:00 XR, hand 2019-07-09 00:00:00 XR, shoulder 2019-06-04 00:00:00 Reverse Total Shoulder Arthroplasty 2019-05-20 00:00:00 (Surg) reverse total shoulder arthroplasty 2019-04-02 00:00:00 (SURG) Knee Joint Replacement 2016-02-07 00:00:00 Knee Surgery 2015-06-03 00:00:00 Results This patient has no known results. Assessments Condition Name Status Diagnosis Date Treating Clinici an Closed fracture of upper end of humerus Active 16:06:56 Stiffness of right shoulder Active 2019-08-17 16:06:56 Shoulder pain Active 2019-08-17 16:06:56 Closed fracture of upper end of humerus Active 15:00:13 Stiffness of right shoulder Active 2019-08-14 15:00:13 Shoulder pain Active 2019-08-14 15:00:13 Closed fracture of upper end of humerus Active 14:25:46 Stiffness of right shoulder Active 2019-08-12 14:25:46 Shoulder pain Active 2019-08-12 14:25:46 Closed fracture of upper end of humerus Active 13:57:39 Stiffness of right shoulder Active 2019-08-05 13:57:39 Shoulder pain Active 2019-08-05 13:57:39 Closed fracture of upper end of humerus Active 13:55:44 Stiffness of right shoulder Active 2019-08-03 13:55:44 Shoulder pain Active 2019-08-03 13:55:44 Closed fracture of upper end of humerus Active 14:09:48 Stiffness of right shoulder Active 2019-07-29 14:09:48 Shoulder pain Active 2019-07-29 14:09:48 Closed fracture of upper end of humerus Active 14:25:13 Stiffness of right shoulder Active 2019-07-27 14:25:13 Shoulder pain Active 2019-07-27 14:25:13 Closed fracture of upper end of humerus Active 16:27:01 Stiffness of right shoulder Active 2019-07-22 16:27:01 Shoulder pain Active 2019-07-22 16:27:01 Closed fracture of upper end of humerus Active 15:03:12 Stiffness of right shoulder Active 2019-07-20 15:03:12 Shoulder pain Active 2019-07-20 15:03:12 Closed fracture of upper end of humerus Active 13:33:46 Stiffness of right shoulder Active 2019-07-13 13:33:46 Shoulder pain Active 2019-07-13 13:33:46 Shoulder pain Active 2019-07-09 13:47:08 Hand pain Active 2019-07-09 14:36:35 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 9:38:00 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 Active 2019-07-13 09:38:13 Closed fracture of upper end of humerus Active 13:56:16 Stiffness of right shoulder Active 2019-07-08 13:56:16 Shoulder pain Active 2019-07-08 13:56:16 Closed fracture of upper end of humerus Active 14:19:58 Stiffness of right shoulder Active 2019-07-06 14:19:58 Shoulder pain Active 2019-07-06 14:19:58 Stiffness of right shoulder Active 2019-06-30 13:44:25 Shoulder pain Active 2019-06-30 13:44:25 Closed fracture of upper end of humerus Active 13:44:25 Closed fracture of upper end of humerus Active 20:06:29 Stiffness of right shoulder Active 2019-06-28 20:06:29 Shoulder pain Active 2019-06-28 20:06:29 Closed fracture of upper end of humerus Active 15:32:13 Stiffness of right shoulder Active 2019-06-24 15:32:13 Shoulder pain Active 2019-06-24 15:32:13 Closed fracture of upper end of humerus Active 14:10:57 Stiffness of right shoulder Active 2019-06-17 14:10:57 Shoulder pain Active 2019-06-17 14:10:57 Closed fracture of upper end of humerus Active 14:15:23 Stiffness of right shoulder Active 2019-06-15 14:15:23 Shoulder pain Active 2019-06-15 14:15:23 Closed fracture of upper end of humerus Active 08:06:47 Stiffness of right shoulder Active 2019-06-11 08:07:38 Shoulder pain Active 2019-06-11 08:07:44 Closed fracture of upper end of humerus Active 13:44:45 Closed fracture of upper end of humerus Active 11:08:37 Closed fracture of upper end of humerus Active 15:07:39 Shoulder pain Active 2019-04-03 08:29:23 Closed fracture of right wrist Active 2019-04-03 08:30: 19 Closed fracture of surgical neck of Active 2019-03-05 0 7:03:49 humerus Shoulder pain Active 2019-03-04 14:43:21 Encounters Start End Encounter Admission Attending Care Care Encounter Date/Time Date/Time Type Type Clinicians Facility Department ID 2019-08-17 2019-08-17 Ame Adams [id number] 00:00:00 00:00:00 wanda Bowers P.A. , P.A. [id number] DPT: [address] [facility], [place] [address], Ph. 2019-08-14 2019-08-14 [id number] 00:00:00 00:00:00 wanda Schmid P.A. , P.A. [id number] RFID STRATEGIST: [address] [facility], [facility] [place] [address], Ph. 2019-08-12 2019-08-12 Ros[facility] [id number] 00:00:00 00:00:00 wanda Haddad P.A. , P.A. [id number] PT: [address] [facility], [address], [place] [address], Ph. 2019-08-05 2019-08-05 [id number] 00:00:00 00:00:00 wanda Schmid P.A. , P.A. [id number] RFID STRATEGIST: [address] [facility] [address], [place] [address], Ph. 2019-08-03 2019-08-03 [id number] 00:00:00 00:00:00 wanda Schmid P.A. , P.A. [id number] RFID STRATEGIST: [address] [facility] [address], [facility] [place] [address], Ph. 2019-07-29 2019-07-29 [id number] 00:00:00 00:00:00 wanda Schmid P.A. , P.A. [id number] RFID STRATEGIST: [address] [facility] [address] [address], Ph. 2019-07-27 2019-07-27 Franco[facility] [id number] 00:00:00 00:00:00 wanda Schmid P.A. , P.A. [id number] RFID STRATEGIST: [address] [facility] [address], [place] [address], Ph. 2019-07-22 2019-07-22 [id number] 00:00:00 00:00:00 wanda Haddad P.A. , P.A. [id number] PT: [address] [facility] [address], [place] [address], Ph. 2019-07-20 2019-07-20 [id number] 00:00:00 00:00:00 wanda Schmid P.A. , P.A. [id number] RFID STRATEGIST: [address] [facility] [address], [place] [address], Ph. 2019-07-13 2019-07-13 [id number] 00:00:00 00:00:00 wanda Schmid P.A. , P.A. [id number] RFID STRATEGIST: [address] [address], [place] [address], Ph. 2019-07-09 2019-07-09 Abdoulaye [facility] [id number] 00:00:00 00:00:00 MD Chiki: Shay muñoz , P.A. [id number] [place] [phone], Ph. 2019-07-08 2019-07-08 Francoise [facility] [id number] 00:00:00 00:00:00 wanda Schmid P.A. , P.A. [id number] RFID STRATEGIST: [address] [address], [place] [address], Ph. 2019-07-06 2019-07-06 Francoise [facility] [id number] 00:00:00 00:00:00 wanda Schmid P.A. , P.A. [id number] RFID STRATEGIST: [address] [facility], [address], [place] [address], Ph. 2019-06-30 2019-06-30 [id number] 00:00:00 00:00:00 wanda Schmid P.A. , P.A. [id number] RFID STRATEGIST: [address] [facility], [place] [address], Ph. 2019-06-26 2019-06-26 Ame Adams [facility] 8805 00:00:00 00:00:00 wanda Bowers P.A. , P.A. [id number] DPT: [address] [facility], [address], [place] [address], Ph. 2019-06-24 2019-06-24 Francoise [facility] 8805 00:00:00 00:00:00 wanda Schmid P.A. , P.A. [id number] RFID STRATEGIST: [address] [facility], [address], [place] [address], Ph. 2019-06-17 2019-06-17 Francoise [facility] 8805 00:00:00 00:00:00 wanda Schmid P.A. , P.A. [id number] RFID STRATEGIST: [address] [facility], [address], [place] [address], Ph. 2019-06-15 2019-06-15 Francoise [facility] 8805 00:00:00 00:00:00 wanda Schmid P.A. , P.A. [id number] RFID STRATEGIST: [address] [facility], [place] [address], Ph. 2019-06-10 2019-06-10 Ame Adams [facility] [id number] 00:00:00 00:00:00 wanda Bowers P.A. , P.A. [id number] DPT: [address] [place] [phone], Ph. 2019-06-04 2019-06-04 [facility] [id number] 00:00:00 00:00:00 RAMILA Richard: Shay muñoz , P.A. [address] [place] [phone], Ph. 2019-05-05 2019-05-05 Rachel Ding [facility] [id number] 00:00:00 00:00:00 RAMILA Richard: Shay muñoz , P.A. [address] [place] [phone], Ph. 2019-04-02 2019-04-02 Abdoulaye [facility] [id number] 00:00:00 00:00:00 MD Chiki: Shay muñoz , P.A. [address] [place] [phone], Ph. 2019-03-04 2019-03-04 Kalpesh [facility] 8 [id number] 00:00:00 00:00:00 wanda Burton P.A. , P.A. [id number] MD: [address] [address], Ph. Immunizations Ordered Immunization Filled Immunization Date Status Commen ts Refusal Reason Name Name influenza, 2018-03-03 Completed injectable, 00:00:00 quadrivalent Social History Smoking Status Start Date Stop Date Unknown If Ever Smoked Vital Signs Vital Name Observation Time Observation Value Comments Height 2019-05-05 00:00:00 62 [in_i] BMI (Body Mass Index) 2019-05-05 00:00:00 29.8 kg/m2 Body Weight 2019-05-05 00:00:00 163 [lb_av] Height 2019-07-09 00:00:00 62 [in_i] BMI (Body Mass Index) 2019-07-09 00:00:00 30.7 kg/m2 Body Weight 2019-07-09 00:00:00 168 [lb_av] Height 2019-06-04 00:00:00 62 [in_i] BMI (Body Mass Index) 2019-06-04 00:00:00 29.8 kg/m2 Body Weight 2019-06-04 00:00:00 163 [lb_av] Height 2019-04-02 00:00:00 62 [in_i] BMI (Body Mass Index) 2019-04-02 00:00:00 29.8 kg/m2 Body Weight 2019-04-02 00:00:00 163 [lb_av]
== END ==
LOC: RAD 07:32
PROVIDERS: ATTEND Internal Medicine Gastroenterology
DX: R11.0 Nausea (principal); R10.9 Unspecified abdominal pain; K76.0 Fatty (change of) liver, not elsewhere classified; K80.80 Other cholelithiasis without obstruction
CPT/HCPCS: 76705